=== PATIENT | female | born 1940 | race Caucasian/White ===

== ENCOUNTER → 2016-12-10 | Outpatient (CLI) | payer OTHER, MEDICARE ==
--- NOTE | 2016-12-10 13:19 | MR ---
MRI Cervical Spine (Without Contrast) December 10, 2016 Indication: Neck pain and headaches. Decreased range of motion. Technique: Sagittal T1, T2, and axial T2, 3D gradient echo MR sequences of the cervical spine without contrast. Findings: The cervical spine is normally aligned except for 3 mm of anterolisthesis of T1 on T2. Bone marrow signal is normal. No fracture, bone marrow replacing lesion, or paraspinal mass. Cerebellar t onsils are in normal position. Cervical spinal cord is normal caliber. No cord edema or myelomalacia. Synovial hypertrophy at the level of the dens results in minimal acquired narrowing at the foramen ma gnum. C2-C3: Disk desiccation. Widely patent central canal. Facet hypertrophy, slightly worse on the right, results in moderate right and minimal left neural foraminal narrowing. C3-C4: Disk desiccation and a mild broad-based osteophyte disk complex results in minimal central can al narrowing and mild to moderate bilateral neural foraminal stenosis. C4-C5: Disk desiccation and diffuse broad-based osteophyte disk complex results in mild central canal narrowing and mild bilateral neural foraminal stenosis. C5-C6: A diffuse broad-based osteophyte disk complex, worse off to the right results in mild central canal narrowing and mild to moderate bilateral neural foraminal stenosis. C6-C7: Disk desiccation and diffuse broad-based osteophyte disk complex results in mild central canal narrowing and mild bilateral neural foraminal narrowing. C7-T1: Disk desiccation. Central canal and neural foramina are widely patent. Anterolisthesis of T1 on T2 results in moderate bilateral neural foraminal stenosis. Central canal is widely patent. Impression: 1. No fracture or bone lesion. 2. Grade 1 spondylolisthesis of T1 on T2 due to facet hypertrophy results in moderate bilateral neura l foraminal narrowing. 3. Moderate multilevel degenerative disk disease extending from C3-C4 to C6-C7 resulting in mild cent ral canal narrowing and mild to moderate neural foraminal stenosis. No focal disk herniation at any l evel.
== END ==
LOC: FIMAGING 10:01
PROVIDERS: ATTEND Internal Medicine
DX: M43.12 Spondylolisthesis, cervical region (principal); M50.31 Other cervical disc degeneration, high cervical region; M48.02 Spinal stenosis, cervical region

== ENCOUNTER → 2016-12-15 | Outpatient (CLI) | payer OTHER, MEDICARE ==
--- NOTE | 2016-12-15 10:03 | DX ---
Right Shoulder, 3 views HISTORY: Follow-up shoulder replacement 12/12/2015, Z96.611 Comparison: June 25, 2016 Findings: The right humeral and glenoid implants remain in excellent anatomic alignment. There is no evidence for loosening or settling. The humeral head component remains normally aligned with the malorie oid. IMPRESSION: Excellent stable postoperative alignment.
--- NOTE | 2016-12-15 10:22 | DX ---
Cervical Spine, 6 upright views including lateral flexion and extension views HISTORY: Cervical pain without trauma COMPARISON: August 12, 2016 plain films Findings: In the neutral position alignment is stable, with degenerative narrowing of disc spaces bet ween C3 and C6, mild spondylolisthesis at C6-7 and C7-T1. In flexion there is severely limited range of motion without significant change in the spondylolistheses between C6 and T1. In extension there i s normal range of motion without significant change in the spondylolisthesis described above. A 6 mm spondylolisthesis at T1-T2 does not significantly change between flexion and extension, and is identi fied in retrospect on the prior study. On the AP view of the head is again tilted toward the patient' s right. There is chronic degenerative change of the left upper facet joints. Impression: No instability identified.
== END ==
LOC: BMCIMAGING 09:12
PROVIDERS: ATTEND Internal Medicine
DX: M50.31 Other cervical disc degeneration, high cervical region (principal); M43.12 Spondylolisthesis, cervical region; M43.14 Spondylolisthesis, thoracic region; Z96.611 Presence of right artificial shoulder joint

== ENCOUNTER → 2018-12-03 | Outpatient (CLI) | payer OTHER, MEDICARE | LOC: FIMAGING 09:09 | PROVIDERS: ATTEND Internal Medicine | DX: R51 Headache (principal); M53.82 Other specified dorsopathies, cervical region ==

== ENCOUNTER 2018-12-28 23:00 | Observation (INO) | payer OTHER, MEDICARE ==
--- NOTE | 2018-12-28 23:12 | EDPHY ---
H & P Time Seen by Provider: 12/28/18 23:12 HPI/ROS: HPI CHIEF COMPLAINT: Headache. Hypertension. HISTORY OF PRESENT ILLNESS: 78-year-old female, poor historian, presents to the emergency room by private vehicle the right-sided neck pain and a right- sided headache. Patient states she suffers from "Seizures in her head" patient states that she suffers from this chronically approximately 2 times a day where she gets this sharp electrical pain that radiates from her right neck up behind her right ear to her right side of her head. However this was worse tonight she reports that it started around 5:00 p.m. Tonight while she was making dinner. She went to bed around 7:00 p.m. And the symptoms got worse. Describes electrical sharp stabbing pain right neck behind the patient's right ear up into the right head in. Associated nausea with it but no vomiting. Describes is 10 at 10 rather severe. She distally reports some chest tightness that started at the same time. She denies any focal numbness or tingling denies focal weakness, denies shortness of breath or pleuritic pain. She has had this discomfort multiple times before but worse tonight. Patient noted to be hypertensive upon arrival. Does not take any blood pressure medications. Of note the patient states she does not have "any significant medical history does not take any daily medications." Past Medical History: Significant medical history for pulmonary embolism status post surgery, anemia, coronary artery disease, OA Past Surgical History: No recent surgery, bilateral shoulder replacements. Social History: Denies drugs alcohol tobacco. at bedside. Family History: Noncontributory ROS REVIEW OF SYSTEMS: Patient extremely poor historian. Review of systems limited due to this. Exam Constitutional triage nursing summary reviewed, vital signs reviewed, awake/ alert. Noted be hypertensive upon arrival 209/100. Eyes normal conjunctivae and sclera, EOMI, PERRLA. HENT neck exam no carotid bruit, normal inspection, atraumatic, moist mucus membranes, no epistaxis, neck supple/ no meningismus, no raccoon eyes. Respiratory clear to auscultation bilaterally, normal breath sounds, no respiratory distress, no wheezing. Cardiovascular rate normal, regular rhythm, no murmur, no edema, distal pulses normal. Gastrointestinal soft, non-tender, no rebound, no guarding, normal bowel sounds, no distension, no pulsatile mass. Genitourinary no CVA tenderness. Musculoskeletal no midline vertebral tenderness, full range of motion, no calf swelling, no tenderness of extremities, no meningismus, good pulses, neurovascularly intact. Skin pink, warm, & dry, no rash, skin atraumatic. Neurologic awake, alert and oriented x 3, AAOx3, moves all 4 extremities equally, motor intact, sensory intact, CN II-XII intact, normal cerebellar, normal vision, normal speech. Psychiatric normal mood/affect. Heme/Lymph/Immune no lymphadenopathy. Differential Diagnosis: Includes but is not limited to in a particular order migraine headache, tension headache, cervical radiculopathy, nerve root compression, vertebral artery dissection, aneurysm, intracranial bleed, CVA Medical Decision Making: Here in emergency room the patient noted be hypertensive upon arrival, complaining of right lateral posterior neck pain right headache. Similar previous headaches but worse tonight. Also complains of chest tightness. Plan for this patient IV established IV fluid bolus 1 mg IV Dilaudid for pain control 4 mg IV Zofran for nausea basic blood work, CT angiogram head and neck. CT head without contrast. Acutely treat her pain and see if her blood pressure improves. Obtain EKG and troponin. Chest x-ray. Re-evaluation: EKG interpretation by me on record in [employer] system. Impression time of EKG 2320, sinus rhythm rate of 69 without any signs of acute ischemia no ST elevation no ST depression. No T-wave abnormalities unremarkable nonischemic EKG. Chest x-ray negative for acute cardiopulmonary disease image interpreted by myself. Troponin 0.00 CT scan of the head without contrast and CT angiogram head and neck are pending at this time. CT scan head without contrast and CT angiogram head and neck faxed me by direct Radiology this is a negative unremarkable CT angiogram head and neck and CT head without contrast. 1:00 a.m.. 0355: Patient re-evaluated she is resting comfortably at this time. Her blood pressure has improved with pain control for her right-sided neck and headache. Her CT scans have been reviewed and are unremarkable for abnormality. She has a negative CT angiogram. As well as negative CT head without contrast The patient is EKG is nonischemic. Patient's troponin negative. Her neck pain and headache improved with IV pain control. Her blood pressure has improved as well. Plan for hospital admission for hypertension. Given her headache and how high her blood pressure is this could be hypertensive urgency. Plan for admission to PCU Patient agrees for admission Spoke with the hospitalist service Dr. López Agrees to admit. ED x-ray chest one view negative for acute cardiopulmonary disease. Image interpreted myself. Bilateral shoulder replacements. Source: Patient - Medical/Surgical History Hx Asthma: No Hx Chronic Respiratory Disease: No Hx Diabetes: No Hx Cardiac Disease: No Hx Renal Disease: No Hx Cirrhosis: No Hx Alcoholism: No Hx HIV/AIDS: No Hx Splenectomy or Spleen Trauma: No Other PMH: high cholesterol, OA - Social History Smoking Status: Never smoked Constitutional: Initial Vital Signs Temperature (C) 36.8 C 12/28/18 23:10 Heart Rate 74 12/28/18 23:10 Respiratory Rate 20 12/28/18 23:10 Blood Pressure 209/115 H 12/28/18 23:10 O2 Sat (%) 96 12/28/18 23:10 O2 Delivery Mode Nasal Cannula O2 (L/minute) 2 Allergies/Adverse Reactions: SEASONAL Allergy (Severe, Uncoded 12/28/18 23:04) GETS ALLERGY SHOTS, SNEEZY, Home Medications: Medication Instructions Recorded Acetaminophen [Tylenol ES 500 mg 500 mg PO BID 01/01/16 (*)] Naproxen Sodium [Aleve 220 MG (*)] 220 mg PO BID 12/28/18 Ascorbic Acid [Vitamin C 500 mg 500 mg PO DAILY 12/29/18 (*)] Docusate Sodium [Colace 100 MG (*)] 100 mg PO DAILY PRN 12/29/18 Ferrous Sulfate [Ferrous Sulf 325 325 mg PO DAILY 12/29/18 MG (*)] SUMAtriptan [Imitrex 25 MG (*)] 25 mg PO Q4H #30 tab 12/29/18 Medical Decision Making - Data Points Laboratory Results: Laboratory Results 12/28/18 23:20 12/28/18 23:20 Medications Given: Discontinued Medications Acetaminophen (Tylenol) 1,000 mg PO Q8H PRN PRN Reason: Pain Stop: 06/27/19 03:56 Last Admin: 12/29/18 18:20 Dose: 1,000 mg Hydromorphone HCl (Dilaudid) 1 mg IVP EDNOW ONE Stop: 12/28/18 23:24 Last Admin: 12/28/18 23:35 Dose: 1 mg Hydromorphone HCl (Dilaudid) 0.5 mg IVP EDNOW ONE Stop: 12/29/18 02:45 Last Admin: 12/29/18 02:54 Dose: 0.5 mg Sodium Chloride (Ns) 1,000 mls @ 0 mls/hr IV EDNOW ONE; Wide Open PRN Reason: Protocol Stop: 12/28/18 23:23 Last Admin: 12/28/18 23:34 Dose: 1,000 mls Ibuprofen (Motrin) 800 mg PO Q8HRS PRN PRN Reason: Headache Stop: 06/27/19 13:59 Last Admin: 12/29/18 09:43 Dose: 800 mg Ondansetron HCl (Zofran) 4 mg IVP EDNOW ONE Stop: 12/28/18 23:24 Last Admin: 12/28/18 23:35 Dose: 4 mg Sumatriptan Succinate (Imitrex) 25 mg PO ONCE ONE Stop: 12/29/18 11:30 Last Admin: 12/29/18 12:20 Dose: 25 mg Point of Care Test Results: Chemistry 12/28/18 23:28 POC Troponin I 0.00 ng/mL ng/mL (0.00-0.08) Departure - Departure Disposition: [facility] Acute Clinical Impression: Hypertensive urgency Headache Qualifiers: Headache type: unspecified Headache chronicity pattern: acute headache Intractability: not intractable Qualified Code(s): R51 - Headache Condition: Good
[2018-12-28] MEDS ORDERED: NS 1,000 ML IV ONE (23:22)
[2018-12-28] MEDS ORDERED: HYDROmorphONE/DILAUDID 2 MG/ML INJ IVP ONE (23:23)
[2018-12-28] MEDS ORDERED: ONDANSETRON 4 MG/2 ML VIAL IVP ONE (23:23)
[2018-12-28 23:35] LABS: PLATELET COUNT 392 10^3/uL (150-400)
[2018-12-28 23:45] LABS: INR 1.13 (0.83-1.16); PROTIME(PATIENT) 14.7 SEC (12.0-15.0)
[2018-12-28] MEDS ORDERED: IOHEXOL 350mgI/ML (OMNIPAQUE) 150 ML BTL IV ONE (23:49)
[2018-12-29] MEDS ORDERED: HYDROmorphONE/DILAUDID 2 MG/ML INJ IVP ONE (02:44)
[2018-12-29] MEDS ORDERED: ONDANSETRON DISINTEGRATING 4 MG TAB PO PRN (03:57)
[2018-12-29] MEDS ORDERED: ONDANSETRON 4 MG/2 ML VIAL IVP PRN (03:57)
[2018-12-29] MEDS ORDERED: ACETAMINOPHEN 325 MG TAB PO PRN (03:57)
--- NOTE | 2018-12-29 04:24 | PDGENHP ---
History and Physical - Chief Complaint Headache - History of Present Illness 78 yo F w/ hx of PE (now off AC) and KRISHAN presents with headache. The patient tells me she has been having headaches a few times per week for about a year. She describes a rapid onset pain that originates in her posterior neck and radiates to the parietal region. She had gone ten days without an episode until she developed a 10/10 pain tonight, which she describes as the worst pain of her life. She uses the term "seizure" to describe these pain events but understands they are likely not true seizures. She denies temporal pain or visual disturbances. She does have a sense that the headache is going to come before it happens. In the ED a CT of the head as well as CTA of head and neck were unremarkable. She has been told by her doctor that she needs an MRI, which she states was to be done soon. Of note, SBP was >200 on arrival to the ER. Her systolic pressure has improved to the 150s while in the ED without intervention. She takes no BP meds as an outpatient. Case discussed with ED physician Dr. Dacosta; records reviewed and summarized above. History Information - Allergies/Home Medication List Allergies/Adverse Reactions: SEASONAL Allergy (Severe, Uncoded 12/28/18 23:04) GETS ALLERGY SHOTS, SNEEZY, Home Medications: Acetaminophen [Tylenol ES 500 mg (*)] 500 mg PO QID 01/01/16 [Last Taken 18:00] Aleve 12/28/18 [Last Taken Unknown] I have personally reviewed and updated: family history, medical history - Past Medical History pulmonary embolism Additional medical history: Iron deficiency anemia - Surgical History Additional surgical history: Bilateral shoulder arthroplasties - Family History Additional family history: Negative for autoimmune disease - Social History Smoking Status: Never smoked Review of Systems Review of Systems: ROS: 10pt was reviewed & negative except for what was stated in HPI & below Physical Exam Physical Exam: Temp Pulse Resp BP Pulse Ox 36.8 C 72 17 155/80 H 99 12/28/18 23:10 12/29/18 01:38 12/29/18 01:38 12/29/18 01:38 12/29/18 01:38 Constitutional: appears nourished, uncomfortable Eyes: PERRL, EOMI Ears, Nose, Mouth, Throat: moist mucous membranes, no oral mucosal ulcers Cardiovascular: regular rate and rhythym Respiratory: no respiratory distress, clear to auscultation Gastrointestinal: normoactive bowel sounds, soft, non-tender abdomen Skin: warm, normal color Neurologic: AAOx3, sensation intact bilaterally, CN II-XII Intact, No weakness, No numbness, No facial droop Psychiatric: interacting appropriately, not anxious Lab Data & Imaging Review 12/28/18 23:20 12/28/18 23:20 WBC 10.74 10^3/uL (3.80-9.50) H 12/28/18 23:20 RBC 4.03 10^6/uL (4.18-5.33) L 12/28/18 23:20 Hgb 10.1 g/dL (12.6-16.3) L 12/28/18 23:20 Hct 32.7 % (38.0-47.0) L 12/28/18 23:20 MCV 81.1 fL (81.5-99.8) L 12/28/18 23:20 MCH 25.1 pg (27.9-34.1) L 12/28/18 23:20 MCHC 30.9 g/dL (32.4-36.7) L 12/28/18 23:20 RDW 19.4 % (11.5-15.2) H 12/28/18 23:20 Plt Count 392 10^3/uL (150-400) 12/28/18 23:20 MPV 8.5 fL (8.7-11.7) L 12/28/18 23:20 Neut % (Auto) 74.7 % (39.3-74.2) H 12/28/18 23:20 Lymph % (Auto) 18.9 % (15.0-45.0) 12/28/18 23:20 [place] % (Auto) 5.2 % (4.5-13.0) 12/28/18 23:20 Eos % (Auto) 0.5 % (0.6-7.6) L 12/28/18 23:20 Baso % (Auto) 0.2 % (0.3-1.7) L 12/28/18 23:20 Nucleat RBC Rel Count 0.0 % (0.0-0.2) 12/28/18 23:20 Absolute Neuts (auto) 8.03 10^3/uL (1.70-6.50) H 12/28/18 23:20 Absolute Lymphs (auto) 2.03 10^3/uL (1.00-3.00) 12/28/18 23:20 Absolute Monos (auto) 0.56 10^3/uL (0.30-0.80) 12/28/18 23:20 Absolute Eos (auto) 0.05 10^3/uL (0.03-0.40) 12/28/18 23:20 Absolute Basos (auto) 0.02 10^3/uL (0.02-0.10) 12/28/18 23:20 Absolute Nucleated RBC 0.00 10^3/uL (0-0.01) 12/28/18 23:20 Immature Gran % 0.5 % (0.0-1.1) 12/28/18 23:20 Immature Gran # 0.05 10^3/uL (0.00-0.10) 12/28/18 23:20 PT 14.7 SEC (12.0-15.0) 12/28/18 23:20 INR 1.13 (0.83-1.16) 12/28/18 23:20 APTT 32.3 SEC (23.0-38.0) 12/28/18 23:20 Sodium 133 mEq/L (135-145) L 12/28/18 23:20 Potassium 4.5 mEq/L (3.5-5.2) 12/28/18 23:20 Chloride 103 mEq/L (97-110) 12/28/18 23:20 Carbon Dioxide 21 mEq/l (22-31) L 12/28/18 23:20 Anion Gap 9 mEq/L (6-14) 12/28/18 23:20 BUN 41 mg/dL (7-23) H 12/28/18 23:20 Creatinine 0.9 mg/dL (0.6-1.0) 12/28/18 23:20 Estimated GFR > 60 12/28/18 23:20 Glucose 109 mg/dL (70-100) H 12/28/18 23:20 Calcium 9.2 mg/dL (8.5-10.4) 12/28/18 23:20 POC Troponin I 0.00 ng/mL (0.00-0.08) 12/28/18 23:28 NT-Pro-B Natriuret Pep 337 pg/mL (0-450) 12/28/18 23:20 Urine Color COLORLESS 12/29/18 00:35 Urine Appearance CLEAR 12/29/18 00:35 Urine pH 6.0 (5.0-7.5) 12/29/18 00:35 Ur Specific [place] 1.017 (1.002-1.030) 12/29/18 00:35 Urine Protein NEGATIVE (NEGATIVE) 12/29/18 00:35 Urine Ketones NEGATIVE (NEGATIVE) 12/29/18 00:35 Urine Blood 1+ (NEGATIVE) H 12/29/18 00:35 Urine Nitrate NEGATIVE (NEGATIVE) 12/29/18 00:35 Urine Bilirubin NEGATIVE (NEGATIVE) 12/29/18 00:35 Urine Urobilinogen NEGATIVE EU (0.2-1.0) 12/29/18 00:35 Ur Leukocyte Esterase 2+ (NEGATIVE) H 12/29/18 00:35 Urine RBC 1-3 /hpf (0-3) 12/29/18 00:35 Urine WBC 5-10 /hpf (0-3) H 12/29/18 00:35 Ur Epithelial Cells TRACE /lpf (NONE-1+) 12/29/18 00:35 Urine Glucose NEGATIVE (NEGATIVE) 12/29/18 00:35 Imaging Review: Prelim CTH, CTA Head/Neck: No acute findings Visualized and Interpreted EKG results: Yes EKG Interpretation: Positive for: normal sinsus rhythm Assessment & Plan Assessment: 78 yo F w/ hx of PE presents with headache and hypertension. Plan: 1. Headache - Unclear etiology; possibly an atypical migraine. Her usual headache pattern (ongoing several times per week for a year) involves an aura followed by rapid onset posterior neck pain with radiation to parietal region. On night of admission she had "worst headache of her life". CTH and CTA Head/ Neck in ED were unremarkable. She has a non-focal neurologic exam. BP was elevated on arrival, which could be contributing, but has improved significantly without intervention. - Will obtain MRI for further evaluation - Consider neurology consultation if not improving or concerning findings on MRI 2. Hypertension - SBP>200 on arrival; improved to SBP 150's without intervention. Possibly this is related to pain. She denies prior history of HTN. - Monitor BP - If persistently elevated, reasonable to start treatment as this may be contributing to headaches 3. Iron deficiency anemia - On oral iron replacement as an outpatient. Her H/H is near previous values. 4. Hx PE - Provoked by shoulder surgery in 2015, she is no longer on anticoagulation. 5. Hyponatremia - Mild, s/p 1 L IVF. Monitor BMP. Diet - Regular Code - Full Ppx - SCDs Dispo - Admit under observation status
[2018-12-29] MEDS: ACETAMINOPHEN 500 MG TAB PO PRN ×2 (05:05→18:20)
[2018-12-29] MEDS ORDERED: ENOXAPARIN 40 MG/0.4 ML SYR SC SCH (09:00)
[2018-12-29] MEDS ORDERED: DOCUSATE SODIUM 100 MG CAP PO PRN (09:01)
[2018-12-29] MEDS ORDERED: IBUPROFEN 800 MG TAB PO PRN (09:02)
[2018-12-29] MEDS ORDERED: SUMAtriptan 25 MG TAB PO ONE (11:29)
[2018-12-29] MEDS ORDERED: GADOBUTROL 10 ML VIAL IVP ONE (11:47)
--- NOTE | 2018-12-29 12:13 | ASMTCMCOM ---
CM Note CM Note Notes: Pts case discussed in tx rounds. Pt is a 78 y/o female admitted for hypertension urgency. OT has been ordered. Needs are TBD at this time. CM to follow. Plan: TBD Date Signed: 12/29/2018 12:13 PM Electronically Signed By:PEPE Valente
[2018-12-29 15:16] VITALS: BP 172/96
--- NOTE | 2018-12-29 17:33 | PDDCSUM ---
Discharge Summary Discharge Summary: Date of Admission: 12/28/2018 Date of Discharge: 12/29/2018 Studies: 1. CT head 2. CTA head/neck 3. MRI brain Discharge Diagnoses: 1. Migrainous headache 2. Hypertension 3. Iron deficiency anemia (chronic) 4. H/o PE (provoked in 2016, now off anticoagulation) 5. Hypovolemic hyponatremia, mild Brief Hospital Course: 78 yo F w/ hx of provoked PE presented with headache and hypertension. On night of admission she had "worst headache of her life." She has been having ongoing headaches several times per week for a year. Denies any aura. Rapid onset posterior neck pain with radiation to right parietal region. Stabbing sensation. Last about an hour. She had a non-focal neurologic exam. CTA head/ neck and brain MRI were unremarkable (except for incidental venous angioma in left basal ganglia - discussed with radiology and minimal chance this is culprit of symptoms). She was started on imitrex with relief. Of note, her BP was markedly elevated on arrival (200/110) and improved to SBP 140-150s without intervention. Suspect this was related to pain. This should be monitored as an outpatient as could be contributing to headaches. Medications: Please refer to EMR for complete list. Sent prescription for imitrex PRN to her pharmacy. Follow Up Plan: 1. Ongoing migraine management with her PCP. Consider neurology referral 2. BP monitoring Physical Exam: Vitals reviewed. Alert and oriented, no focal neuro deficits, rrr without m/r/g, lungs clera, abdomen soft and nt, no edema, no rashes.
--- NOTE | 2018-12-30 06:41 | CPEKG ---
Test Reason : OPEN Blood Pressure : / mmHG Vent. Rate : 069 BPM Atrial Rate : 069 BPM P-R Int : 135 ms QRS Dur : 083 ms QT Int : 388 ms P-R-T Axes : 055 024 028 degrees QTc Int : 416 ms Sinus rhythm Confirmed by Brent Srivastava ([id number]) on 12/30/2018 6:40:42 AM Referred By: Brent Srivastava Confirmed By:Brent Srivastava
[2018-12-30] MEDS ORDERED: FERROUS SULFATE 325 MG TAB PO SCH (09:00)
== END 2018-12-29 18:29 | disposition home or self-care (01) ==
LOC: F2W 12-29 04:45
PROVIDERS: ADMIT Student in an Organized Health Care Education/Training Program; ATTEND Internal Medicine
DX: G43.909 Migraine, unspecified, not intractable, without status migrainosus (principal); I10 Essential (primary) hypertension; D50.9 Iron deficiency anemia, unspecified; E87.1 Hypo-osmolality and hyponatremia; E86.1 Hypovolemia; R93.0 Abnormal findings on diagnostic imaging of skull and head, not elsewhere classified; I25.10 Atherosclerotic heart disease of native coronary artery without angina pectoris; E78.5 Hyperlipidemia, unspecified; M19.90 Unspecified osteoarthritis, unspecified site; Z86.718 Personal history of other venous thrombosis and embolism; Z96.612 Presence of left artificial shoulder joint; Z96.611 Presence of right artificial shoulder joint
CPT/HCPCS: 70450; 70496; 70498; 70553; 71045; 93005; 96374; 96375; 96376; 97165; 99285; A9585; G0378; J1170; J2405; Q9967; 84484-ER

== ENCOUNTER 2019-01-03 01:07 | Inpatient (IN) | payer OTHER, MEDICARE ==
--- NOTE | 2019-01-03 01:09 | EDPHY ---
H & P Time Seen by Provider: 01/03/19 01:09 HPI/ROS: HPI CHIEF COMPLAINT: Chest pain, hypertension, nausea, vomiting, diarrhea, headache HISTORY OF PRESENT ILLNESS: 78-year-old female very familiar to myself, presents to the emergency room she was just recently admitted for hypertension urgency, migraine headache, , presents back to the emergency room [facility] with multitude of complaints. She reports since 9:00 p.m. She developed some chest discomfort across her chest tightness. Additionally reports nausea 1 episode of vomiting and diarrhea multiple times around 6:00 p.m. [facility]. It is now 115 in the morning. She also states she has a headache. Similar previous headaches. It is noted that I just admitted her to the hospital for headache and hypertensive urgency. She was discharged on the of last month. She is due to follow up with primary care doctor today. She arrives to the emergency room by private vehicle her main complaint is chest tightness across her chest associated nausea vomiting. Of note when she arrived to the emergency room her blood pressure is 200/100. This very similar presentation to when she was here last time. Her discharge blood pressure was in the 140s to 150 systolic. She has not been started on any blood pressure medication. She has not take any blood pressure medication. Past Medical History: Significant medical history for migraine headaches, hypertension, PE, coronary disease, osteoarthritis Past Surgical History: No recent surgery Social History: Lives locally denies drugs alcohol tobacco. Family History: Noncontributory ROS REVIEW OF SYSTEMS: 10 Systems were reviewed and negative with the exception of the elements mentioned in the history of present illness. Exam Constitutional elderly, nontoxic triage nursing summary reviewed, vital signs reviewed, awake/alert. Vital signs noted be hypertensive 200/100. Eyes normal conjunctivae and sclera, EOMI, PERRLA. HENT normal inspection, atraumatic, moist mucus membranes, no epistaxis, neck supple/ no meningismus, no raccoon eyes. Respiratory clear to auscultation bilaterally, normal breath sounds, no respiratory distress, no wheezing. Cardiovascular rate normal, regular rhythm, no murmur, no edema, distal pulses normal. Gastrointestinal soft, non-tender, no rebound, no guarding, normal bowel sounds, no distension, no pulsatile mass. Genitourinary no CVA tenderness. Musculoskeletal no midline vertebral tenderness, full range of motion, no calf swelling, no tenderness of extremities, no meningismus, good pulses, neurovascularly intact. Skin pink, warm, & dry, no rash, skin atraumatic. Neurologic awake, alert and oriented x 3, AAOx3, moves all 4 extremities equally, motor intact, sensory intact, CN II-XII intact, normal cerebellar, normal vision, normal speech. Psychiatric normal mood/affect. Heme/Lymph/Immune no lymphadenopathy. Differential Diagnosis: Differential diagnosis includes but is not limited to: ACS, atypical chest pain, pneumothorax, pneumonia, pulmonary embolism, aortic dissection, congestive heart failure, tumor, musculoskeletal pain, esophageal pain, GERD, peptic ulcer disease, pancreatitis hypertensive urgency, hypertensive emergency, migraine headache hypertension from pain Medical Decision Making: Plan for this patient IV establishment full monitor worker obtain EKG, troponin, IV Dilaudid 1 mg for headache and chest pain. EKG , troponin, chest x-ray closely monitor appearing re-evaluate blood pressure. Re-evaluation: EKG interpretation by me on record in [employer] system. Impression time of EKG 1:18 a.m., sinus rhythm rate of 79 without any signs of acute ischemia no ST elevation. ED x-ray chest one view bilateral shoulder replacements. Clear lung wilkinson bilaterally. Chest x-ray compared to chest x-ray 5 days ago stable. 2:23 a.m. patient resting comfortably. Feels better after IV Dilaudid 1 mg, blood pressure still very high 173/92. Heart rate 75, pulse ox 100% nasal cannula 2 L Plan for hospital admission for observation for hypertension. I believe her chest discomfort and headache is again caused from hypertensive urgency. Will ask the hospitalist service to admit Initial blood pressure 200/100 here. Improved with pain control 170s over 90s. She is chest pain-free at this time 2:23 a.m.. Source: Patient - Medical/Surgical History Hx Asthma: No Hx Chronic Respiratory Disease: No Hx Diabetes: No Hx Cardiac Disease: No Hx Renal Disease: No Hx Cirrhosis: No Hx Alcoholism: No Hx HIV/AIDS: No Hx Splenectomy or Spleen Trauma: No Other PMH: high cholesterol, OA - Social History Smoking Status: Never smoked Constitutional: Initial Vital Signs Heart Rate 88 01/03/19 01:12 Respiratory Rate 18 01/03/19 01:12 O2 Sat (%) 99 01/03/19 01:12 O2 Delivery Mode Room Air O2 (L/minute) 2 Allergies/Adverse Reactions: SEASONAL Allergy (Severe, Uncoded 01/03/19 01:18) GETS ALLERGY SHOTS, SNEEZY, Home Medications: Medication Instructions Recorded Acetaminophen [Tylenol ES 500 mg 500 mg PO BID 01/01/16 (*)] Naproxen Sodium [Aleve 220 MG (*)] 220 mg PO BID 12/28/18 Ascorbic Acid [Vitamin C 500 mg 500 mg PO DAILY 12/29/18 (*)] Docusate Sodium [Colace 100 MG (*)] 100 mg PO DAILY PRN 12/29/18 Ferrous Sulfate [Ferrous Sulf 325 325 mg PO DAILY 12/29/18 MG (*)] Acet/Caffeine/Buta Fioricet 1 each PO Q6H PRN #12 tab 01/05/19 [Fioricet (*)] Gabapentin [Neurontin 300 MG (*)] 300 mg PO DAILY #30 cap 01/05/19 Medical Decision Making - Data Points Laboratory Results: Laboratory Results 01/03/19 01:25 01/04/19 05:04 Medications Given: Discontinued Medications Acetaminophen (Tylenol) 650 mg PO Q4HRS PRN PRN Reason: Pain, Mild/Fever, Can Take PO Stop: 07/02/19 02:44 Last Admin: 01/03/19 19:59 Dose: 650 mg Acetaminophen/Butalbital/Caffeine (Fioricet) 1 each PO Q6H PRN PRN Reason: Headache Stop: 01/14/19 11:30 Last Admin: 01/05/19 08:49 Dose: 1 each Gabapentin (Neurontin) 300 mg PO DAILY CASTRO Stop: 07/03/19 16:29 Last Admin: 01/05/19 08:40 Dose: 300 mg Hydromorphone HCl (Dilaudid) 1 mg IVP EDNOW ONE Stop: 01/03/19 01:18 Last Admin: 01/03/19 01:28 Dose: 1 mg Sodium Chloride (Ns) 1,000 mls @ 0 mls/hr IV EDNOW ONE; Wide Open PRN Reason: Protocol Stop: 01/03/19 01:17 Last Admin: 01/03/19 01:30 Dose: 1,000 mls Ketorolac Tromethamine (Toradol) 15 mg IVP Q6HRS PRN PRN Reason: Pain, Moderate Stop: 01/08/19 04:18 Last Admin: 01/05/19 08:37 Dose: 15 mg Lisinopril (Zestril) 10 mg PO EDNOW ONE Stop: 01/03/19 02:55 Last Admin: 01/03/19 03:20 Dose: 10 mg Lisinopril (Zestril) 10 mg PO DAILY CASTRO Stop: 07/03/19 08:59 Last Admin: 01/05/19 08:44 Dose: 10 mg Lorazepam (Ativan) 0.5 - 1 mg PO Q8HRS PRN PRN Reason: Anxiety, Able to Take PO Stop: 07/02/19 02:44 Last Admin: 01/05/19 08:38 Dose: 0.25 mg Ondansetron HCl (Zofran) 4 mg IVP EDNOW ONE Stop: 01/03/19 01:18 Last Admin: 01/03/19 01:30 Dose: 4 mg Ondansetron HCl (Zofran) 4 mg IVP Q4HRS PRN PRN Reason: Nausea/Vomiting, Can't Take PO Stop: 07/02/19 02:44 Last Admin: 01/04/19 14:10 Dose: 4 mg Point of Care Test Results: Chemistry 01/03/19 01:25 POC Troponin I 0.00 ng/mL ng/mL (0.00-0.08) Departure - Departure Disposition: [facility] Inpatient Acute Clinical Impression: Hypertensive urgency Condition: Fair
[2019-01-03] MEDS ORDERED: NS 1,000 ML IV ONE (01:16)
[2019-01-03] MEDS ORDERED: ONDANSETRON 4 MG/2 ML VIAL IVP ONE (01:17)
[2019-01-03] MEDS ORDERED: HYDROmorphONE/DILAUDID 2 MG/ML INJ IVP ONE (01:17)
[2019-01-03 01:36] LABS: PLATELET COUNT 407 10^3/uL (150-400)
[2019-01-03 01:45] LABS: INR 1.17 (0.83-1.16); PROTIME(PATIENT) 15.1 SEC (12.0-15.0)
[2019-01-03] MEDS ORDERED: ONDANSETRON 4 MG/2 ML VIAL IVP PRN (02:45)
[2019-01-03] MEDS ORDERED: ONDANSETRON DISINTEGRATING 4 MG TAB PO PRN (02:45)
[2019-01-03] MEDS ORDERED: LISINOPRIL 10 MG TAB PO ONE (02:54)
[2019-01-03] MEDS ORDERED: traMADol 50 MG TAB PO PRN (04:20)
--- NOTE | 2019-01-03 04:31 | PDGENHP ---
History and Physical - Chief Complaint Chest pain, headache - History of Present Illness Source-patient provides history appears reliable. EMR was reviewed and case discussed with ED provider. HPI-is a very pleasant 78-year-old female with past medical history significant for migraine headaches, chronic back pain presents emergency department with complaints of chest pain and headache. Patient was just recently discharged on 12/29/18 for similar presentation with complaints of severe headache, chest pain. Patient underwent CT CTA of the head and MRI of the brain without any acute findings. During the course of her hospital stay patient's blood pressure did improve significantly without any intervention. She was discharged without any addition of antihypertensive medications as there was some suspicion that pain was causing patient's elevated blood pressures. Patient denies any fevers or chills. No orthopnea, PND, lower extremity edema. She again developed chest discomfort subsequent headache. No acute changes in vision. No focal deficits. Patient's initial blood pressures in the emergency department 200/100s. History Information - Allergies/Home Medication List Allergies/Adverse Reactions: SEASONAL Allergy (Severe, Uncoded 01/03/19 01:18) GETS ALLERGY SHOTS, SNEEZY, Home Medications: Acetaminophen [Tylenol ES 500 mg (*)] 500 mg PO BID 01/01/16 [Last Taken 21:00] Naproxen Sodium [Aleve 220 MG (*)] 220 mg PO BID 12/28/18 [Last Taken 12/28/18 21:00] Ascorbic Acid [Vitamin C 500 mg (*)] 500 mg PO DAILY 12/29/18 [Last Taken ] Docusate Sodium [Colace 100 MG (*)] 100 mg PO DAILY PRN 12/29/18 [Last Taken Unknown] Ferrous Sulfate [Ferrous Sulf 325 MG (*)] 325 mg PO DAILY 12/29/18 [Last Taken 12/28/18] I have personally reviewed and updated: family history, medical history, social history, surgical history - Past Medical History migraines, pulmonary embolism (No longer on anticoagulation.) Additional medical history: Iron deficiency anemia. Chronic low back pain. - Surgical History Additional surgical history: Bilateral shoulder arthroplasties. Lumbar steroid injections. - Family History Additional family history: Negative for autoimmune disease. Mother-HTN - Social History Smoking Status: Never smoked Alcohol Use: None Drug Use: None Additional social history: Patient is lives with her in [place]. Within the past year patient reports that she has had significant decline in her ability to complete ADLs due to her ongoing issues with lower back pain. Cor status-full. Review of Systems Review of Systems: ROS: 10pt was reviewed & negative except for what was stated in HPI & below Physical Exam Physical Exam: Blood pressure upon arrival to the ED 200/100. Selected Entries 01/03/19 01:32 Blood Pressure Automatic Method Heart Rate 74 O2 Sat (%) 95 Blood Pressure 173/92 H Mean Arterial 119 H Pressure (MAP) O2 Delivery Room Air Mode Temp Pulse Resp BP Pulse Ox 36.8 C 71 18 136/81 H 98 01/03/19 04:00 01/03/19 04:00 01/03/19 03:21 01/03/19 04:00 01/03/19 04:00 O2 (L/minute) 1 Constitutional: no apparent distress, chronically ill appearing, other (No acute distress. Pleasant elderly slightly frail-appearing female is lying quietly in rney.) Eyes: PERRL (Glasses), anicteric sclera, EOMI, No scleral injection Ears, Nose, Mouth, Throat: dry mucous membranes, other (No nasal discharge.), No poor dentition Cardiovascular: regular rate and rhythym (Slightly distant heart sounds.), no murmur, rub, or gallop, pulses symmetric bilaterally, No edema Peripheral Pulses: 1+: dorsalis-pedis (R), dorsalis-pedis (L) Respiratory: no respiratory distress, no rales or rhonchi, clear to auscultation , No expiratory wheeze, No respiratory distress, No rhonchi Gastrointestinal: normoactive bowel sounds, soft, non-tender abdomen, no palpable masses, No tenderness, No guarding, No rebound, No distension Genitourinary: no bladder tenderness, No bey in urethra Skin: warm, normal color, no rashes or abrasions Musculoskeletal: pain with ROM (Lobe), generalized weakness (Generalized weakness and deconditioning. Patient is able to sit up independently with some low back pain pain and discomfort.) Neurologic: AAOx3, sensation intact bilaterally, other (Grossly nonfocal exam.) , No facial droop Psychiatric: interacting appropriately, not encephalopathic, thought process linear, anxious, No depressed, No flat affect, No poor memory Lab Data & Imaging Review 01/03/19 01:25 01/03/19 01:25 WBC 10.06 10^3/uL (3.80-9.50) H 01/03/19 01:25 RBC 4.31 10^6/uL (4.18-5.33) 01/03/19 01:25 Hgb 11.2 g/dL (12.6-16.3) L 01/03/19 01:25 Hct 35.4 % (38.0-47.0) L 01/03/19 01:25 MCV 82.1 fL (81.5-99.8) 01/03/19 01:25 MCH 26.0 pg (27.9-34.1) L 01/03/19 01:25 MCHC 31.6 g/dL (32.4-36.7) L 01/03/19 01:25 RDW 19.6 % (11.5-15.2) H 01/03/19 01:25 Plt Count 407 10^3/uL (150-400) H 01/03/19 01:25 MPV 8.5 fL (8.7-11.7) L 01/03/19 01:25 Neut % (Auto) 72.6 % (39.3-74.2) 01/03/19 01:25 Lymph % (Auto) 18.1 % (15.0-45.0) 01/03/19 01:25 [place] % (Auto) 7.6 % (4.5-13.0) 01/03/19 01:25 Eos % (Auto) 0.6 % (0.6-7.6) 01/03/19 01:25 Baso % (Auto) 0.2 % (0.3-1.7) L 01/03/19 01:25 Nucleat RBC Rel Count 0.0 % (0.0-0.2) 01/03/19 01:25 Absolute Neuts (auto) 7.31 10^3/uL (1.70-6.50) H 01/03/19 01:25 Absolute Lymphs (auto) 1.82 10^3/uL (1.00-3.00) 01/03/19 01:25 Absolute Monos (auto) 0.76 10^3/uL (0.30-0.80) 01/03/19 01:25 Absolute Eos (auto) 0.06 10^3/uL (0.03-0.40) 01/03/19 01:25 Absolute Basos (auto) 0.02 10^3/uL (0.02-0.10) 01/03/19 01:25 Absolute Nucleated RBC 0.00 10^3/uL (0-0.01) 01/03/19 01:25 Immature Gran % 0.9 % (0.0-1.1) 01/03/19 01:25 Immature Gran # 0.09 10^3/uL (0.00-0.10) 01/03/19 01:25 PT 15.1 SEC (12.0-15.0) H 01/03/19 01:25 INR 1.17 (0.83-1.16) H 01/03/19 01:25 APTT 35.1 SEC (23.0-38.0) 01/03/19 01:25 Sodium 138 mEq/L (135-145) 01/03/19 01:25 Potassium 4.5 mEq/L (3.5-5.2) 01/03/19 01:25 Chloride 106 mEq/L (97-110) 01/03/19 01:25 Carbon Dioxide 23 mEq/l (22-31) 01/03/19 01:25 Anion Gap 9 mEq/L (6-14) 01/03/19 01:25 BUN 35 mg/dL (7-23) H 01/03/19 01:25 Creatinine 0.9 mg/dL (0.6-1.0) 01/03/19 01:25 Estimated GFR > 60 01/03/19 01:25 Glucose 121 mg/dL (70-100) H 01/03/19 01:25 Calcium 9.6 mg/dL (8.5-10.4) 01/03/19 01:25 POC Troponin I 0.00 ng/mL (0.00-0.08) 01/03/19 01:25 NT-Pro-B Natriuret Pep 138 pg/mL (0-450) 01/03/19 01:25 Imaging Review: Chest x-ray high is reviewed myself report is still pending. Compared to chest x-ray from 12/29/18. Peribronchiolar wall thickening without any acute consolidations with prominent mediastinal widening similar to previous x-ray. Patient does appear slightly rotated. Chest X-Ray results: no infiltrate Visualized and Interpreted imaging results: Yes Assessment & Plan Assessment: 78 -year-old female with past medical history significant for Jono headaches , chronic low back pain and history PE presents emergency department with complaints of chest pain and headache. Hypertensive urgency (Acute) - blood pressure at triage in the ED 200/100. Patient given dose dilaudid and IVF with improvement in BPs down to SBP 130s. Patient chest pain and headache symptoms improved. Patient was discharged for similar presentation. Patient had rapid resolution of BPs and medication management was deferred for continued monitoring. Patient will be started on lisinopril given the variability of her blood pressures any extremes. Additionally patient is also currently taking Imitrex which could contribute to variable blood pressures. Will hold off on any continue dosing at this time. Chest pain - patient with some chest pressure which has improved with correction of blood pressures. Patient was started on lisinopril as noted above. Headache - improved with blood pressure control and pain medications as above. Chronic low back pain - supportive care with K-pad and Tylenol. Anemia, iron deficiency - resume iron replacement. FEN - saline lock IV. Replace electrolytes p.r.n. Cardiac diet. PPX-SCDs. Holding anticoagulation anticipating short hospital stay. Cor status-full This is an-patient admitted to observation status on [facility] floor with remote telemetry to monitor for stabilization blood pressures.
[2019-01-03] MEDS: ACETAMINOPHEN 325 MG TAB PO PRN ×3 (10:01→19:59)
--- NOTE | 2019-01-03 15:28 | ASMTCMCOM ---
CM Note CM Note Notes: Plan of care reviewed in multidisciplinary rounds. 78 year old female admitted via ED for c/o chest tightness and nausea. Recently discharged after episode of similar complaints. Lives independently with her , no needs anticipated at this time. CM to follow. Plan: Like to discharge to home when medically stable for discharge. Date Signed: 01/03/2019 03:28 PM Electronically Signed By:Unique Fournier RN
--- NOTE | 2019-01-03 16:23 | HOSPPROG ---
Hospitalist Progress Note Assessment/Plan: 78 yo F w LEON, paroxysmal hth, cp cp: in setting of marked htn had this pain on presentation last night w non ischemic ekg (interp by me) stress in AM cannot walk 2/2 knee arthritis LEON: not clearly migraines will have neurology see in am htn: started on lisinopril Subjective: cxr unchanged from prior (interp by me). no further LEON Objective: Vital Signs Temp Pulse Resp BP Pulse Ox 36.8 C 66 16 87/54 L 93 01/03/19 15:59 01/03/19 15:59 01/03/19 15:59 01/03/19 15:59 01/03/19 15:59 01/02/19 01/03/19 01/04/19 05:59 05:59 05:59 Intake Total 1000 Balance 1000 PT 15.1 SEC (12.0-15.0) H 01/03/19 01:25 INR 1.17 (0.83-1.16) H 01/03/19 01:25 - Physical Exam Constitutional: no apparent distress, appears nourished Eyes: PERRL, anicteric sclera Ears, Nose, Mouth, Throat: moist mucous membranes, hearing normal Cardiovascular: regular rate and rhythym, no murmur, rub, or gallop, No systolic murmur Respiratory: no respiratory distress, no rales or rhonchi Gastrointestinal: normoactive bowel sounds, soft, non-tender abdomen Genitourinary: no bladder fullness, No bey in urethra Skin: warm, no induration Musculoskeletal: full muscle strength Neurologic: AAOx3 ICD10 Worksheet Patient Problems: Problems Problem Status Onset Hypertensive urgency Acute Headache Acute Pulmonary embolism Acute
[2019-01-04] MEDS ORDERED: REGADENOSON 0.4 MG/5 ML SYR IVP ONE (09:37)
[2019-01-04] MEDS: KETOROLAC 15 MG/1 ML SDV IVP PRN ×2 (10:33→19:39)
[2019-01-04] MEDS: LISINOPRIL 10 MG TAB PO SCH (10:38)
--- NOTE | 2019-01-04 10:41 | CPR ---
[f rep st] NONINVASIVE CARDIAC PROCEDURE REPORT DATE OF PROCEDURE: 01/04/2019 PROCEDURE: Lexiscan nuclear stress test. ADMIT DIAGNOSES: 1. Chest pain. 2. Family history of coronary artery disease. Resting EKG shows a sinus bradycardia with occasional PVCs at a rate of 55. Resting blood pressure 1 54/86, oxygen saturation 97%. STRESS PORTION: Lexiscan nuclear stress test. Lexiscan was injected rapidly followed by saline flush. Cardiolite was then injected followed by mercy ine flush. Her blood pressure dropped to 106/55, heart rate 118, at peak, oxygen saturation 95%. Anupam horton did feel a headache after the injection. There were no EKG changes. RECOVERY: She did recover spontaneously. Blood pressure 120/66, heart rate 94, oxygen saturation 97 %. Her headache did subside with caffeine. At this time she currently is stable for nuclear imaging. /[id number]/MODL
[2019-01-04] MEDS: ACET/CAFFEINE/BUTA FIORICET 1 EACH TAB PO PRN ×2 (11:49→18:49)
--- NOTE | 2019-01-04 16:24 | NEUROPROG ---
Assessment: [id number] - Neurology Consult: - CC: Dr. Savana Kendall consulted neurology for headache. Results placed in EMR for her review. - HPI: Pt presented to [facility] ER on 01/03/19 with chest pain and headaches. She was reported to have head long-standing headaches since 2017 that occurred 8/month and could be sudden onset sharp pain in her head. She was seen at [facility] in November 2018 for the headache. Evaluation included unremarkable head/neck CTA and brain MRI wwo. On admission on 01/03/19 pt noted to have slightly elevated WBC of 10, elevated BUN of 35, and elevated blood pressure to 173/92. I initially saw the patient on 01/04/19. Neurologic exam normal. Defer chest pain eval to hospitalist. 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 However other possible causes are elevated blood pressure. Recommend addressing elevated blood pressure and beginning pt on gabapentin 300 mg qhs for headache prophylaxis and having pt f/u in neurology clinic in 1-6 weeks to assess response. - PMHx: MHA, pulm emboli, Fe def anemia, chronic low back pain - SHx: no tobacco FHx: HTN - ROS: Pt denied acute fever, total vision loss, active severe chest pain, respiratory failure, total body severe rash, total bowel/bladder incontinence, psychosis, active seizures, or active bleeding - O: VS reviewed General: Alert Eyes: Fundoscopic exam not able to visualize optic disks CV: Heart RRR, no murmur, no carotid bruit Lungs: Clear to auscultation bilaterally, no rhonchi or rales Neuro: - Mental: . Oriented x person/place/date . concentration appears normal . speech fluency/comprehension normal . memory appears normal . fund of knowledge appear intact - Cranial Nerves: . II: PERRL, VFFTC . III/IV/: EOMI, no nystagmus, normal smooth pursuits, no Ptosis . V: facial sensation intact to LT . VII: face symmetric to eye closure and smile . VIII: hearing intact to conversation . IX/X: uvula raises symmetrically . XI: SCM 5/5 B/L strength . XII: tongue protrudes midline w/nl strength - Motor: . Tone: normal tone in all 4 extremity . Strength: no pronator drift, strength 5/5 throughout (B/L delt, bic, tri, hand precipitate washer, hf/he, df/pf) - Reflexes: B/L bic/BR/patella 2/4 - Sensory: all 4 extremity intact to light touch - Coord: [id number] wnl, ZAN wnl, [id number] wnl - Gait: deferred - Labs: 01/03/19- BUN 35H - Rads: 12/29/18- Brain MRI wwo: Underlying atrophy and white matter disease compatible with age. Incidental venous angioma left basal ganglia. No acute intracranial process identified (I personally visualized the images on 01/03/19) - 12/29/18- Head/neck CTA: normal - Assessment: 1. Chronic headaches - 2. Chest pain: defer eval to hospitalist 3. Chronic low back pain - Plan: - elevated blood pressure can cause headaches so recommend addressing - recommend beginning gabapentin 300 mg qhs for headache prophylaxis - F/U in neurology clinic 1-6 weeks - No further neuro w/u needed, neurology will sign off Objective: Vital Signs Temp Pulse Resp BP Pulse Ox 37.1 C 70 16 119/73 94 01/04/19 15:13 01/04/19 15:13 01/04/19 15:13 01/04/19 15:13 01/04/19 15:13 Laboratory Results 01/04/19 05:04 01/03/19 01/04/19 01/05/19 05:59 05:59 05:59 Intake Total 1000 400 Balance 1000 400 PT 15.1 SEC (12.0-15.0) H 01/03/19 01:25 INR 1.17 (0.83-1.16) H 01/03/19 01:25 Allergies/Adverse Reactions: SEASONAL Allergy (Severe, Uncoded 01/03/19 01:18) GETS ALLERGY SHOTS, SNEEZY,
--- NOTE | 2019-01-04 16:31 | HOSPPROG ---
Hospitalist Progress Note Assessment/Plan: 78 yo F w LEON, paroxysmal hth, cp cp: in setting of marked htn neg stress LEON: not clearly migraines neurology thinks it is neuralgia; neurontin started htn: reactive dc meds dispo: change to inpt Subjective: case d/w dr girard. neg stress Objective: Vital Signs Temp Pulse Resp BP Pulse Ox 37.1 C 70 16 119/73 94 01/04/19 15:13 01/04/19 15:13 01/04/19 15:13 01/04/19 15:13 01/04/19 15:13 Laboratory Results 01/04/19 05:04 01/03/19 01/04/19 01/05/19 05:59 05:59 05:59 Intake Total 1000 400 Balance 1000 400 PT 15.1 SEC (12.0-15.0) H 01/03/19 01:25 INR 1.17 (0.83-1.16) H 01/03/19 01:25 - Physical Exam Constitutional: no apparent distress, appears nourished Eyes: PERRL, anicteric sclera Ears, Nose, Mouth, Throat: moist mucous membranes, hearing normal Cardiovascular: regular rate and rhythym, no murmur, rub, or gallop Respiratory: no respiratory distress, no rales or rhonchi Gastrointestinal: normoactive bowel sounds, soft, non-tender abdomen Genitourinary: No bey in urethra Skin: warm, normal color Musculoskeletal: full muscle strength, no muscle tenderness Neurologic: AAOx3 ICD10 Worksheet Patient Problems: Problems Problem Status Onset Hypertensive urgency Acute Headache Acute Pulmonary embolism Acute
[2019-01-04] MEDS: GABAPENTIN 300 MG CAP PO SCH (16:43)
--- NOTE | 2019-01-04 17:27 | PDMN ---
Medical Necessity Medical necessity: [facility] [id number] Hypertension: 78 yo w/ CP and H/A. Eval reveals hypertensive urgency 200/100 and admitted to OBS for workup and tx. Cardio and neuro consults ordered. Pt remains hypertensive today w/ BPs 150s-180s/80s- 120s and is not back to baseline requiring additional MN for ongoing TELE monitoring and BP management. Hx migrains, PE, anemia, chronic low back pain. Change to IP status 01/04/19@1631 per MD order.
[2019-01-04] MEDS: LORazepam 0.5 MG TAB PO PRN (19:39)
[2019-01-05] MEDS: KETOROLAC 15 MG/1 ML SDV IVP PRN (08:37)
[2019-01-05] MEDS: LORazepam 0.5 MG TAB PO PRN (08:38)
[2019-01-05] MEDS: GABAPENTIN 300 MG CAP PO SCH (08:40)
[2019-01-05] MEDS: LISINOPRIL 10 MG TAB PO SCH (08:44)
[2019-01-05 08:45] VITALS: BP 109/77
[2019-01-05] MEDS: ACET/CAFFEINE/BUTA FIORICET 1 EACH TAB PO PRN (08:49)
--- NOTE | 2019-01-05 12:45 | HOSPPROG ---
Hospitalist Progress Note Assessment/Plan: 78 yo F w LEON, paroxysmal hth, cp cp: in setting of marked htn neg stress LEON: not clearly migraines neurology thinks it is neuralgia; neurontin started htn: reactive dc meds dispo: home today > 30 minutes Subjective: mild LEON this AM. responded to fioricet Objective: Vital Signs Temp Pulse Resp BP Pulse Ox 36.3 C 92 16 109/77 92 01/05/19 08:46 01/05/19 08:46 01/05/19 08:46 01/05/19 08:46 01/05/19 08:46 01/04/19 01/05/19 01/06/19 05:59 05:59 05:59 Intake Total 900 Balance 900 PT 15.1 SEC (12.0-15.0) H 01/03/19 01:25 INR 1.17 (0.83-1.16) H 01/03/19 01:25 - Physical Exam Constitutional: no apparent distress, appears nourished Eyes: PERRL, anicteric sclera Ears, Nose, Mouth, Throat: moist mucous membranes, hearing normal Cardiovascular: regular rate and rhythym, no murmur, rub, or gallop Respiratory: no respiratory distress, no rales or rhonchi Gastrointestinal: normoactive bowel sounds, soft, non-tender abdomen Genitourinary: no bladder fullness, No bey in urethra Skin: warm Musculoskeletal: full muscle strength, no muscle tenderness Neurologic: AAOx3, sensation intact bilaterally ICD10 Worksheet Patient Problems: Problems Problem Status Onset Hypertensive urgency Acute Headache Acute Pulmonary embolism Acute
--- NOTE | 2019-01-09 08:57 | CPEKG ---
Test Reason : OPEN Blood Pressure : / mmHG Vent. Rate : 079 BPM Atrial Rate : 079 BPM P-R Int : 138 ms QRS Dur : 086 ms QT Int : 373 ms P-R-T Axes : 057 033 027 degrees QTc Int : 428 ms Sinus rhythm Atrial premature complex Confirmed by Benjie Reno ([id number]) on 01/09/2019 8:57:13 AM Referred By: Savana Kendall Confirmed By:Benjie Reno
== END 2019-01-05 14:10 | disposition home or self-care (01) | DRG 305 ==
LOC: F1N 03:58 → OBSVTOIN 01-04 16:31
PROVIDERS: ADMIT Family Medicine; ATTEND Internal Medicine
DX: I16.0 Hypertensive urgency (principal); R07.9 Chest pain, unspecified; R51 Headache; Z86.711 Personal history of pulmonary embolism; D50.9 Iron deficiency anemia, unspecified
CPT/HCPCS: 84484-ER; 96374; 97165-GO; 97535-GO; A9500; G0378; J1170; J1885; J2405; J2785

== ENCOUNTER → 2019-03-10 | Outpatient (CLI) | payer OTHER, MEDICARE | LOC: FIMAGING 14:29 | PROVIDERS: ATTEND Orthopaedic Surgery | DX: M16.11 Unilateral primary osteoarthritis, right hip (principal); K57.90 Diverticulosis of intestine, part unspecified, without perforation or abscess without bleeding ==

== ENCOUNTER 2019-03-16 09:16 | Inpatient (IN) | payer OTHER, MEDICARE ==
[~2019-03-16 09:16] MED LIST: POVIDONE-IODINE 20 ML in SODIUM CL IRRIG SOLUTION 500 ML IRR ONE; ROPIVACAINE 0.2% 80 MG, EPINEPHrine 0.2 MG, KETOROLAC TROMETHAMINE 30 MG in SYRINGE 0 ML IU ONE; TRANEXAMIC ACID 1,000 MG in NS 100 ML IV ONE
[2019-03-16] MEDS ORDERED: BUPIVACAINE/EPI 0.5% 30 ML SDV ONE (09:19)
[2019-03-16] MEDS ORDERED: LR 1,000 ML IV ONE (09:30)
[2019-03-16] MEDS ORDERED: ceFAZolin 2 GM/DEXTROSE 100 ML IV ONE (09:30)
[2019-03-16] MEDS ORDERED: DEXAMETHASONE 4 MG/ML VIAL IVP ONE (09:30)
[2019-03-16] MEDS ORDERED: FAMOTIDINE 20 MG TAB PO ONE (09:30)
[2019-03-16] MEDS ORDERED: ACETAMINOPHEN 325 MG TAB PO ONE (09:30)
--- NOTE | 2019-03-16 10:51 | PDHPUP ---
History & Physical Update H&P update statement: This history and physical update is based on an assessment of the patient which was completed after admission or registration (within 24 hours), but prior to the surgery/procedure. H&P update: H&P reviewed & patient examined, no change in patient's condition since H&P completed
[2019-03-16] MEDS ORDERED: MIDAZOLAM 2 MG/2 ML VIAL IVP ONE (10:57)
[2019-03-16] MEDS ORDERED: MIDAZOLAM 2 MG/2 ML VIAL ONE (10:59)
--- NOTE | 2019-03-16 11:00 | PDANEPAE ---
ANE History of Present Illness DJd s/f JORGE ANE Past Medical History - Cardiovascular History Hx Hypertension: Yes Hx Arrhythmias: No Hx Chest Pain: No Hx Coronary Artery / Peripheral Vascular Disease: No Hx CHF / Valvular Disease: No Hx Palpitations: No Cardiovascular History Comment: PE 2016 POST SHOULDER SURG WAS ON PRADAXA FOR TX. Recent admit x2 for HTN crisis - Pulmonary History Hx COPD: No Hx Asthma/Reactive Airway Disease: No Hx Recent Upper Respiratory Infection: No Hx Oxygen in Use at Home: No Hx Sleep Apnea: No Sleep Apnea Screening Result - Last Documented: Negative Pulmonary History Comment: SOME SOB W/STAIRS. HX of PE - Neurologic History Hx Cerebrovascular Accident: No Hx Seizures: No Hx Dementia: No Neurologic History Comment: HEADACHES - GABAPENTIN - Endocrine History Hx Diabetes: No - Renal History Hx Renal Disorders: Yes Renal History Comment: URGENCY INCONT - Liver History Hx Hepatic Disorders: No - Neurological & Psychiatric Hx Hx Neurological and Psychiatric Disorders: No - Cancer History Hx Cancer: No - Congenital Disorder History Hx Congenital Disorders: No - GI History Hx Gastrointestinal Disorders: No - Other Health History Other Health History: NEG - Chronic Pain History Chronic Pain: No - Surgical History Prior Surgeries: R KNEE MENISCUS. L SHOULDER REPLACEMENT. HYSTERECTOMY. COLONSOCOPY. R SHOULDER REPLACEMENT. PAVITHRA CATARACTS ANE Review of Systems Review of Systems: - Exercise capacity METS (RN): 4 METS ANE Patient History - Allergies Allergies/Adverse Reactions: SEASONAL Allergy (Severe, Uncoded 01/03/19 01:18) GETS ALLERGY SHOTS, SNEEZY, - Home Medications Home medications: home medication list seen and reviewed Home Medications: Acetaminophen [Tylenol ES 500 mg (*)] 500 mg PO TID@07,,16 01/01/16 [Last Taken 03/15/19 23:59] Ascorbic Acid [Vitamin C 500 mg (*)] 1,000 mg PO DAILY 12/29/18 [Last Taken ] Docusate Sodium [Colace 100 MG (*)] 100 mg PO HS 12/29/18 [Last Taken 03/08/19] Ferrous Sulfate [Ferrous Sulf 325 MG (*)] 325 mg PO DAILY@12/29/18 [Last Taken 03/15/19] Gabapentin [Neurontin 100 MG (*)] 100 mg PO DAILY@03/10/19 [Last Taken 23:59] - NPO status NPO Status: no food or drink >8 hours NPO Since - Liquids (Date): 03/15/19 NPO Since - Liquids (Time): 22:00 NPO Since - Solids (Date): 03/15/19 NPO Since - Solids (Time): 18:00 - Smoking Hx Smoking Status: Never smoked - Alcohol Use Alcohol Use: None - Family Anes Hx Family Anes Hx: none Family Hx Anesthesia Complications: NEG ANE Labs/Vital Signs - Labs - CBC WBC: reviewed and okay - Vital Signs Blood Pressure: 206/104 Heart Rate: 73 Respiratory Rate: 14 O2 Sat (%): 100 Height: 147.32 cm ANE Physical Exam - Airway Neck exam: FROM Mallampati Score: Class 2 Mouth exam: normal dental/mouth exam - Pulmonary Pulmonary: no respiratory distress - Cardiovascular Cardiovascular: regular rate and rhythym - ASA Status ASA Status: III ANE Anesthesia Plan Anesthesia Plan: spinal (HTN today similar to last 2 admission. Likely underlying HTN now with anxiety overlay. Okay for OR and then hopitalists post op)
[2019-03-16] MEDS ORDERED: PROPOFOL/EMULSION 500 MG/50 ML BOTTLE IV ONE (11:18)
[2019-03-16] MEDS ORDERED: fentaNYL 100 MCG/2 ML INJ ONE (11:18)
[2019-03-16] MEDS ORDERED: PHENYLEPHRINE HCL 100 MCG/ML SYR ONE (12:01)
[2019-03-16] MEDS ORDERED: ONDANSETRON 4 MG/2 ML VIAL ONE (12:17)
[2019-03-16] MEDS ORDERED: DEXAMETHASONE 4 MG/ML VIAL ONE (12:17)
[2019-03-16] MEDS ORDERED: PROPOFOL 200 MG/20 ML VIAL ONE (12:23)
[2019-03-16] MEDS ORDERED: METOCLOPRAMIDE 10 MG/2 ML VIAL IVP PRN (13:07)
[2019-03-16] MEDS ORDERED: BISACODYL 10 MG SUPP PR PRN (13:07)
[2019-03-16] MEDS ORDERED: PROMETHAZINE HCL 25 MG/ML INJ IVP PRN (13:07)
[2019-03-16] MEDS ORDERED: ONDANSETRON DISINTEGRATING 4 MG TAB PO PRN (13:07)
[2019-03-16] MEDS ORDERED: MAGNESIUM HYDROXIDE 30 ML UDCUP PO PRN (13:07)
[2019-03-16] MEDS ORDERED: DIPHENOXYLATE/ATROPINE LOMOTIL 1 TAB PO PRN (13:07)
[2019-03-16] MEDS ORDERED: POLYETHYLENE GLYCOL 3350 17 GM PKT PO PRN (13:07)
[2019-03-16] MEDS ORDERED: CYCLOBENZAPRINE 10 MG TAB PO PRN (13:07)
[2019-03-16] MEDS ORDERED: diphenhydrAMINE 25 MG CAP PO PRN (13:07)
[2019-03-16] MEDS ORDERED: PROMETHAZINE HCL 25 MG SUPPR PR PRN (13:07)
[2019-03-16] MEDS ORDERED: oxyCODONE IR 5 MG TAB PO PRN (13:07)
[2019-03-16] MEDS ORDERED: TEMAZEPAM 15 MG CAP PO PRN (13:07)
[2019-03-16] MEDS ORDERED: LACTULOSE 20 GM/30 ML UDCUP PO PRN (13:07)
[2019-03-16] MEDS ORDERED: ONDANSETRON 4 MG/2 ML VIAL IVP PRN (13:07)
--- NOTE | 2019-03-16 13:07 | POSTOPPROG ---
Post Op Note Date of Operation: 03/16/19 Surgeon: London Watson [employer] Installer: JONES Hair Anesthesiologist: MD Stephen Anesthesia: IV Sedation, Spinal Pre-op Diagnosis: R hip OA Post-op Diagnosis: same Procedure: R ant JORGE with SOFIYA Inf/Abcess present in the surg proc area at time of surgery?: No EBL: 100-500 (300) Drains: Hemovac
[2019-03-16] MEDS ORDERED: LR 1,000 ML IV SCH (13:30)
--- NOTE | 2019-03-16 13:39 | POSTANESTH ---
Post Anesthetic Evaluation Cardiovascular Status: Similar to Pre-Op Cond, Tx Hyper/Hypo-tension (HTN better post op) Respiratory Status: Normal, Stable, Tx Decrease in SpO2 Level of Consciousness/Mental Status: Can Participate in Eval Pain Control: Adequate, Prn Tx Ordered Nausea/Vomiting Control: Adequate, Prn Tx Ordered Complications Possibly Related to Anesthesia: None Noted
--- NOTE | 2019-03-16 15:01 | ASMTCMCOM ---
CM Note CM Note Notes: Patient is POD #[address] Watson. She is normally independent and lives with her . Dr Watson put in a pre-op referral for homecare to [facility], so if homecare is the recommendation, they are the agency. Case Management will follow. Date Signed: 03/16/2019 03:00 PM Electronically Signed By:Adrienne Lester RN
--- NOTE | 2019-03-16 15:16 | PDMN ---
Medical Necessity Medical necessity: [facility] IP only surgery; cpt 93006 R JORGE
--- NOTE | 2019-03-16 15:47 | SOAPPROG ---
SOAP Progress Note Assessment/Plan: Assessment: s/p right JORGE, anterior approach, Jc assist - procedure earlier this morning Plan: Begin discharge planning - patient wants to go home and would like home health. Her will be at home as well Continue VTE ppx - lovenox 40 mg once daily, ISMAEL, SCDs; history of PE PT - anterior hip precautions Continue pain medication - tolerating oral medication Consult hospital medicine for hypertension monitoring - history of hypertensive urgency Remove Hemovac in morning 03/16/19 15:43 Subjective: Patient states she is feeling pretty good at this time, right hip pain is minimal/tolerable. She is planning on going home once she is discharged from the hospital. States her lives with her, but she feels that she will need additional help and would like home health. She denies shortness of breath , chest pain, headache, fever, chills, nausea, vomiting. Objective: Vital Signs Temp Pulse Resp BP Pulse Ox 36.7 C 68 17 157/109 H 100 03/16/19 15:05 03/16/19 15:05 03/16/19 15:05 03/16/19 15:05 03/16/19 15:05 03/15/19 03/16/19 03/17/19 05:59 05:59 05:59 Intake Total 850 Output Total 975 Balance -125 Patient resting comfortably in bed, no acute distress. RLE: Surgical wound dressings are clean, dry and intact. Hemovac is in place. Right lower leg compartments are soft and nontender. She can actively DF and PF right foot and right great toe against resistance. Grossly NVI distally. ICD10 Worksheet Patient Problems: Problems Problem Status Onset Osteoarthritis of right hip Acute Headache Acute Hypertensive urgency Acute Pulmonary embolism Acute
--- NOTE | 2019-03-16 17:35 | PDCONSULT ---
Photo Journalist Note: Claudia White is a very pleasant 79-year-old female with no significant past medical history who was admitted for a right total hip arthroplasty which she underwent today. Internal medicine has been consulted for evaluation and management of her hypertension. The patient follows with Dr. Elizondo and has been told that she does have some elevated blood pressure and has been considered for medical management of her hypertension although nothing has been started yet. On this admission through chart review her blood pressures have been documented as high as 208 systolic. The patient has kept a journal of her blood pressures at home and thinks that she has systolic blood pressures as high as 180 documented in her journal. She has no symptoms that coincide with high blood pressures. Currently she is comfortable and denies any other complaints. Past medical history Likely undiagnosed hypertension Osteoarthritis Iron deficiency Surgical history Meniscal repair Total hip arthroplasty Rotator cuff Prolapse repair Social history No alcohol tobacco or drugs Family history Essential hypertension Allergies No known drug allergies Medications As listed in the medication reconciliation Review of systems Ten point review of systems is negative except as listed in the HPI Examination Vitals 136/93, pulse 84, respirations 17, saturating 96% on 1 room nasal cannula , temperature 36.5 degrees General well-nourished female in no acute distress HEENT-PERRLA atraumatic normocephalic, mucous membranes are moist pink and acyanotic Lungs clear to auscultation bilaterally Cardiovascular regular rhythm rate no murmurs rubs gallops Abdomen soft nontender nondistended in all 4 quadrants no organomegaly Extremities no clubbing cyanosis edema or calf pain Skin no lesions or rashes or ecchymosis Neuro cranial nerves 2-12 grossly intact no focal neurologic deficits Psych mood and affect appropriate Assessment plan 79-year-old female admitted for total hip arthroplasty noted to be hypertensive Right total hip arthroplasty-. Postop day 0 status post right JORGE. Management per Ortho, PT OT pain control DVT prophylaxis Hypertension- current blood pressure is 136/93, but has had systolic as high as 208. It does sound as though she may have some under ED did essential hypertension noted in the outpatient setting as well. Will start with p.r.n. Hydralazine 10 mg IV q.6 for systolic blood pressures over 170. If blood pressure is persistently elevated over 150 systolic will likely start a low dose of amlodipine. -avoid nsaids as they contribute to hypertension -hydralazine p.r.n. 10 mg IV q.6 The Chart and imaging have all been reviewed as the patient is new to me. PPX- per ortho Fluids- PO Dispo- inpatient for JORGE Thank you for this consult, medicine will continue follow.
[2019-03-16] MEDS ORDERED: hydrALAZINE 20 MG/ML VIAL IVP PRN (17:53)
[2019-03-16] MEDS: ACETAMINOPHEN 325 MG TAB PO SCH (18:24)
[2019-03-16] MEDS: ceFAZolin 2 GM/DEXTROSE 100 ML IV SCH (18:25)
[2019-03-16] MEDS ORDERED: GABAPENTIN 300 MG CAP PO SCH (19:00)
[2019-03-16] MEDS: FAMOTIDINE 20 MG TAB PO SCH (20:20)
[2019-03-16] MEDS ORDERED: DOCUSATE SODIUM 100 MG CAP PO SCH (21:00)
[2019-03-17] MEDS: ACETAMINOPHEN 325 MG TAB PO SCH ×2 (01:01→06:28)
[2019-03-17] MEDS: ceFAZolin 2 GM/DEXTROSE 100 ML IV SCH (03:47)
[2019-03-17] MEDS ORDERED: GABAPENTIN 100 MG CAP PO SCH ×2 (07:00→19:00)
[2019-03-17] MEDS ORDERED: FERROUS SULFATE 325 MG TAB PO SCH (07:00)
[2019-03-17 07:34] VITALS: BP 141/83
--- NOTE | 2019-03-17 07:47 | SOAPPROG ---
SOAP Progress Note Assessment/Plan: Assessment: Patient is doing well POD 1 s/p right JORGE, anterior approach, Jc assist Hypertension - followed by hospital medicine Plan: Pain management: pain is well controlled on oral pain meds, Percocet prescription given to patient VTE ppx: recommend Lovenox 40 mg SC once daily for 3 weeks, cont ISMAEL and SCDs Start outpatient PT within the next 1-2 weeks. Anterior JORGE precautions Anemia: level is expected initially postop. Asymptomatic. Continue to monitor D/C planning: Patient has done better than anticipated and would like to be discharged to home today. Patient must be released from PT before discharge to home. She will have home health arranged. Her will also be at home Follow up with PCP regarding hypertension 03/17/19 08:02 03/17/19 08:03 Subjective: Patient states she is feeling really good and would like to go home today. She is still interested in having home health arranged. Patient reports her right hip pain is minimal. She has been able to void spontaneously. She denies shortness of breath, chest pain, fever, chills, headache, nausea, vomiting. Regarding hypertension, hospitalist saw the patient yesterday. Order for Hydralazine 10 mg IV prn every 6 hours for SBP > 170 and if SBP persistently > 150 then a low dose of amlodipine was placed. They recommended she avoid NSAIDS. Objective: Vital Signs Temp Pulse Resp BP Pulse Ox 36.7 C 67 15 141/83 H 95 03/17/19 07:33 03/17/19 07:33 03/17/19 07:33 03/17/19 07:33 03/17/19 07:33 Laboratory Results 03/17/19 04:29 03/16/19 03/17/19 03/18/19 05:59 05:59 05:59 Intake Total 2055 Output Total 2200 Balance -145 Patient resting comfortably in bed, no acute distress. Patient is about to eat breakfast. RLE: Surgical wound dressings are clean, dry and intact. No signs of infection. Lower leg compartments are soft and nontender. She can actively DF and PF her right foot and great toe against resistance. Grossly NVI distally. ICD10 Worksheet Patient Problems: Problems Problem Status Onset Osteoarthritis of right hip Acute Headache Acute Hypertensive urgency Acute Pulmonary embolism Acute
[2019-03-17] MEDS: FAMOTIDINE 20 MG TAB PO SCH (08:02)
--- NOTE | 2019-03-17 08:12 | PDDCSUM ---
Discharge Summary Discharge Summary: ADMISSION DIAGNOSIS: Right hip severe degenerative arthritis DISCHARGE DIAGNOSIS: Right hip severe degenerative arthritis OPERATION PERFORMED: March 16, 2019, right total hip arthroplasty, anterior approach, Jc assist POSTOPERATIVE COMPLICATIONS: None CONDITION ON DISCHARGE: Improved DESCRIPTION OF HOSPITAL COURSE: The patient was admitted to the hospital on the morning of surgery and underwent a right total hip arthroplasty, anterior approach, Jc assist. Postoperatively, patient was treated with multimodal DVT prophylaxis, including lovenox 40 mg SC once daily, ISMAEL ally, SCDs. Patient was seen by PT and made good progress with ambulation and stairs. On the first post- operative day the patients H&H was 10.9/33.5. Patient was able to void spontaneously. At the time of discharge, patient was afebrile, wound was clean and dry. Patient is walking with a walker. DISPOSITION: The patient is discharged home with home health. She is to begin outpatient PT within the next 2 weeks before she sees Dr. Watson. Patient may progress to full weightbearing on the right lower extremity as tolerated. She will continue with Lovenox injection 40 mg SC once daily until 3 weeks post- operatively. Patient received prescription for Percocet for pain. The patient will be seen by Dr. Watson's office for her 2 week post-operative appointment. If there are any problems, patient is to call Dr. Farmer office.
[2019-03-17] MEDS ORDERED: ASCORBIC ACID 500 MG TAB PO SCH (09:00)
[2019-03-17] MEDS ORDERED: ENOXAPARIN 40 MG/0.4 ML SYR SC SCH (09:00)
--- NOTE | 2019-03-17 09:35 | PDIAF ---
- Diagnosis Diagnosis: Right hip osteoarthritis Code Status: Full Code - Medication Management Discharge Medications: electronically signed and located in the Home Medication List. - Orders Services needed: Home Care, Physical Therapy Home Care Face to Face: I certify that this patient was under my care and that I had the required [id number] encounter meeting the encounter requirements on the discharge day. My findings support the fact that the patient is homebound as defined in Home Care Face to Face Continued: CMS Chapter 7 Medicare Benefits Manual 30.1.1 , The condition of the patient is such that there exists a normal inability to leave home and consequently, leaving home would require a considerable and taxing effort. Isolation Type: None Diet Recommendation: no restrictions on diet Diet Texture: Regular Texture Diet Additional Instructions: WBAT Percocet given to patient see handout - Follow Up Care Current Providers and Referrals: London Watson MD [Medical Doctor] - follow up in 2 weeks Nallely Steele MD [Primary Care Provider] -
--- NOTE | 2019-03-17 10:02 | ASMTLACE ---
XIAOE Length of stay for Answers: 1 day current admission Acuity / Level of Answers: Yes Care: Did the patient have an inpatient admission? # of Emergency department Answers: 1-2 visits in the last 6 months Score: 5 Date Signed: 03/17/2019 10:01 AM Electronically Signed By:Gertrudis Dc RN
--- NOTE | 2019-03-17 10:24 | ASDISCHSUM ---
Discharge Information Plan Status:Home with Home Health Medically Cleared to Leave:03/17/2019 Discharge Date:03/17/2019 CM D/C Disposition:Home, Routine, Self-Care ADT D/C Disposition:Home Health Service Projected Discharge Date:03/17/2019 12:00 AM Transportation at D/C:Family Discharge Delay Reason: Follow-Up Date:03/17/2019 12:00 AM Discharge Slot:1 - 8:01 am - 12:00 noon Final Diagnosis:s/p Right Total Hip Arthoplasty Placement Information Patient Contact Information Contact Name:GEOVANNI Relationship: Address:[address] [place] [address] Work Phone: [facility]:[place] Alternate Phone: [facility]/Zip Code:[place] [address] Email: Financial Information Financial Class:Medicare Primary Plan Desc:MEDICARE INPATIENT Primary Plan Number:[id number] Secondary Plan Desc:[employer]/MDR SUPPLEMENT Secondary Plan Number:[id number] Assessment Information [facility] CM Progress Note CM Note CM Note Notes: Patient is POD #[address] Watson. She is normally independent and lives with her . Dr Watson put in a pre-op referral for homecare to [facility], so if homecare is the recommendation, they are the agency. Case Management will follow. Date Signed: 03/16/2019 03:00 PM Electronically Signed By:Adrienne Lester RN LACE LACE Length of stay for Answers: 1 day current admission Acuity / Level of Answers: Yes Care: Did the patient have an inpatient admission? # of Emergency department Answers: 1-2 visits in the last 6 months Score: 5 Date Signed: 03/17/2019 10:01 AM Electronically Signed By:Gertrudis Dc, RN Intervention Information
--- NOTE | 2019-03-17 10:57 | ASMTDCNOTE ---
Case Management Discharge Discharge Order Complete? Answers: Yes Patient to Obtain Answers: via Family Medications Transportation Arranged Answers: Family/Friends Faxed Final Orders Answers: Yes Notes: [facility] to [facility] Agency/Facility Transfer Answers: Yes Report Printed & Faxed to Receiving Agency Family Notified Answers: Yes Discharge Comments Notes: CM met with patient prior to discharge, her son and daughter in law were in the room and will support patient with recommendations and transport her home. IM explained, delivered, patient signed for receipt. Confirmed [facility] to follow up with patient for home care, patient states understanding. CM available to follow if any additional CM/Discharge needs arise. Date Signed: 03/17/2019 10:56 AM Electronically Signed By:Aisha Marin
[2019-03-17] MEDS ORDERED: OXYCODONE/APAP 5/325 TAB PO PRN (11:12)
--- NOTE | 2019-03-21 13:32 | GOP ---
[f rep st] OPERATIVE REPORT DATE OF OPERATION: 03/16/2019 SURGEON: London Watson MD TECHNICIAN'S HELPER: Mahad Hair, CSFA, LSA [employer] Worker was required for the procedure due to the complexity of the case, patient's condition for p ositioning, prepping, draping, retraction, and closure. ANESTHESIA: Spinal and IV sedation. PREOPERATIVE DIAGNOSIS: Right hip osteoarthritis. POSTOPERATIVE DIAGNOSIS: Right hip osteoarthritis. PROCEDURE PERFORMED: Right hip anterior approach hip replacement with MAKOplasty robotic guidance, f luoroscopic supervision, greater than 1 hour. FINDINGS: SPECIMENS: Femoral head x1. ESTIMATED BLOOD LOSS: 300 cc. INDICATIONS: Patient has severe hip osteoarthritis that failed to improve with conservative measures significantly affecting activities of daily living, including walking. Patient elected to proceed w ith anterior approach hip replacement using MAKOplasty robotic guidance after extensive discussion of all possible approaches, as well as risks, benefits, pros, cons, expected recovery, and prognosis. The patient verbalized understanding of the risks and benefits of the procedure and signed informed c onsent prior to the procedure. DESCRIPTION OF PROCEDURE: Patient was seen in the holding area. Operative consent and extremity wer e signed, and the patient was taken to the Operating Room. After a smooth induction of spinal anesth esia and sedation, she was placed in supine position on the Operating Room table with arch table exte nsion, and the hip and contralateral iliac crest were prepped and draped in the usual sterile fashion . Operative site was confirmed by signature, time-out performed. Allergies reviewed. Antibiotics a nd TXA were administered. Three pins were placed in the contralateral iliac crest, and the pelvic array was fixed. It was well visualized by the robot. Desired incision for the anterior approach of the hip was infiltrated with 0.25% Marcaine with epinephrine. Incision was made with a 10 blade, carried through subcutaneous ti ssue to identify the TFL fascia. This was incised in line with the incision. The TFL was retracted laterally. Lateral femoral circumflex vessels were coagulated with Aquamantys. The deep TFL fascia was incised, and the vastus lateralis was clearly exposed. Pre-capsular fat was excised. A T-shaped capsulotomy was performed. The capsule was preserved for later closure. The femoral neck cut was then performed based on pre-templated calculations and imaging. The femoral head was excised with a corkscrew. The acetabulum was exposed in standard fashion. The labrum and pulvinar soft tissue were excised sha rply. The pelvic checkpoint was placed in the AIIS. Acetabular registration was performed using the robot. Reaming was then performed using the robot to the desired size. Cup was impacted into place . Again, with robotic guidance system, good fixation was achieved. The cup was irrigated and dried, and the liner was impacted into place achieving good locking within the cup. The femur was exposed in standard fashion. The femur was broached to the desired size. Trial neck a nd head were attached, and the hip was relocated. The position of all components was confirmed fluor oscopically. The foot was externally rotated 90 degrees and extended to the floor. Stability was co nfirmed. The hip was then dislocated, and the femoral trial components were removed, and the stem wa s impacted into place. The trunnion was cleaned and dried, and the head was impacted down onto the t runnion. The wound was copiously irrigated, including the cup, with pulse lavage, and the hip was on ce again relocated. Component placement was confirmed with fluoroscopy. All checkpoints were remove d. The pelvic array was also removed. The wound was copiously irrigated with sterile solution. Dil tlingit & haida Betadine solution was then irrigated into the wound and allowed to soak for 3 minutes before bein g irrigated out. Joint cocktail solution was injected in the soft tissue. Capsule and indirect head of the rectus femoris were repaired with #1 Vicryl. The drain was placed exiting distally and later ally from deep to TFL. The wound was then closed in layers with 0 Quill in the TFL fascia, deep subc utaneous fat, and 3-0 Versa-Franko in the dermis. The wound was dressed with sterile dressings, patient safely awakened and taken to Recovery Room in stable condition. All critical portions of procedure performed by myself, Dr. Watson. This operative note was created by me, and I was immediately available for emergency cross-coverage at all times. DRAINS: Hemovac x1. COMPLICATIONS: None. IMPLANTS: Includes [place] Trident 2 titanium cluster hole acetabular shell size 48 mm with a 0-degr ee polyethylene liner, [place] Accolade 2 size 3 stem with a 132 degree neck angle and a 36 mm +2.5 m m head. /[id number]/MODL
== END 2019-03-17 11:46 | disposition home health service (06) | DRG 470 ==
LOC: F1N 09:16 → F3N 13:33
PROVIDERS: ADMIT Orthopaedic Surgery; ATTEND Orthopaedic Surgery
PROC: 0SR904Z Replacement of Right Hip Joint with Ceramic on Polyethylene Synthetic Substitute, Open Approach (ICD-10-PCS; principal; 2019-03-16 10:30)
PROC: 8E0Y0CZ Robotic Assisted Procedure of Lower Extremity, Open Approach (ICD-10-PCS; principal; 2019-03-16 10:30)
DX: M16.11 Unilateral primary osteoarthritis, right hip (principal); I10 Essential (primary) hypertension
CPT/HCPCS: 97116-GP; 97161-GP; 97165-GO; 97535-GO; J0171; J0690; J1100; J1650; J1885; J2250; J2370; J2405; J2704; J2795; J3010

== ENCOUNTER 2019-03-20 11:40 | Emergency (ER) | payer OTHER, MEDICARE ==
[2019-03-20] MEDS ORDERED: ACETAMINOPHEN 500 MG TAB ONE (12:07)
[2019-03-20] MEDS ORDERED: NS 1,000 ML IV ONE (12:09)
[2019-03-20] MEDS ORDERED: ACETAMINOPHEN 500 MG TAB PO ONE (12:09)
[2019-03-20 12:22] LABS: PLATELET COUNT 240 10^3/uL (150-400)
--- NOTE | 2019-03-20 12:55 | EDPHY ---
H & P Stated Complaint: r hip surgery 03/16 continued pain/sedated weakness post narcotics Time Seen by Provider: 03/20/19 12:54 HPI/ROS: CHIEF COMPLAINT: Postoperative fever, increased pain with ambulation, weakness HISTORY OF PRESENT ILLNESS: The patient is status post right hip replacement on of this past week. She had been doing well up until yesterday when she developed increasing weakness, difficulty walking and a postoperative fever. The patient reports the development of a slight cough over the past day. She denies any symptoms of urinary frequency or dysuria. The patient denies any discharge from her surgical site incision. The patient denies additional acute complaints. REVIEW OF SYSTEMS: A comprehensive 10 point review of systems is otherwise negative aside from elements mentioned in the history of present illness. Source: Patient Exam Limitations: No limitations - Personal History Current Tetanus Diphtheria and Acellular Pertussis (TDAP): Yes - Medical/Surgical History Hx Asthma: No Hx Chronic Respiratory Disease: No Hx Diabetes: No Hx Cardiac Disease: No Hx Renal Disease: No Hx Cirrhosis: No Hx Alcoholism: No Hx HIV/AIDS: No Hx Splenectomy or Spleen Trauma: No Other PMH: high cholesterol, OA hip surgery - Social History Smoking Status: Never smoked - Physical Exam Exam: General Appearance: Elderly female, no acute distress Eyes: Pupils equal and round no pallor or injection ENT, Mouth: Mucous membranes moist Respiratory: Crackles bilateral lung bases Cardiovascular: Regular rate and rhythm Gastrointestinal: Abdomen is soft and nontender, no masses, bowel sounds normal Neurological: 5/5 strength noted all 4 extremities Skin: Surgical drip incision clean dry and intact, minimal surrounding erythema Musculoskeletal: Neck is supple nontender Extremities: Painful passive range of motion noted at the right hip Psychiatric: Patient is oriented X 3, there is no agitation Constitutional: Initial Vital Signs Temperature (C) 39.4 C H 03/20/19 11:47 Heart Rate 94 03/20/19 11:47 Respiratory Rate 18 03/20/19 11:47 Blood Pressure 154/101 H 03/20/19 11:47 O2 Sat (%) 93 03/20/19 11:47 O2 Delivery Mode Room Air O2 (L/minute) 2 Allergies/Adverse Reactions: SEASONAL Allergy (Severe, Uncoded 03/20/19 11:45) GETS ALLERGY SHOTS, SNEEZY, Home Medications: Medication Instructions Recorded Acetaminophen [Tylenol ES 500 mg 500 mg PO TID@07,11,16 01/01/16 (*)] Ascorbic Acid [Vitamin C 500 mg 1,000 mg PO DAILY 12/29/18 (*)] Docusate Sodium [Colace 100 MG (*)] 100 mg PO HS 12/29/18 Ferrous Sulfate [Ferrous Sulf 325 325 mg PO DAILY@12/29/18 MG (*)] Gabapentin [Neurontin 100 MG (*)] 100 mg PO DAILY@03/10/19 Gabapentin [Neurontin 100 MG (*)] 300 mg PO DAILY@03/16/19 Enoxaparin [Lovenox 40 MG (*)] 40 mg SC DAILY syr 03/17/19 celeCOXIB [Celebrex (*)] 200 mg PO DAILY #30 cap 03/17/19 oxyCODONE/APAP 5/325 [Percocet 1 - 2 tab PO Q4HRS PRN #30 tab 03/17/19 5/325 (*)] Medical Decision Making - Diagnostics Imaging Results: Imaging Impressions Chest X-Ray 03/20/19 12:14 Impression: 1. Mild dependent interstitial edema suspected at the lung bases. Consider mild fluid overload. Pelvis X-Ray 03/20/19 15:15 Impression: Good alignment of the right hip replacement. ED Course/Re-evaluation: The patient presents to the ED with a slight increase in pain in her right hip following surgery and a fever. The patient denies any other infectious symptoms. The patient was initially noted to be febrile to 39.4. She defervesced with Tylenol. Blood cultures were obtained. The patient has no evidence of sepsis or serious criteria. Chest x-ray demonstrates no evidence of a pneumonia. Urinalysis demonstrates no evidence of an obvious infection. The patient had an IV established. She received a L of normal saline. Pelvic x-ray demonstrates no evidence of hardware failure. I consulted with the patient's primary surgeon Dr. Watson who evaluated the patient in the emergency department. At this point time he is comfortable the patient going home with close follow- up in the office over the next 1-2 days. The patient will return to the emergency department for any worsening symptoms of a infection including increasing pain, discharge or progressive erythema. Differential Diagnosis: Differential diagnosis considered includes atelectasis, pneumonia, urinary tract infection, postoperative infection - Data Points Laboratory Results: Laboratory Results 03/20/19 12:07 03/20/19 12:07 03/20/19 03/20/19 03/20/19 13:50 12:15 12:09 WBC RBC Hgb POC Hgb 11.6 gm/dL L gm/dL (12.6-16.3) Hct POC Hct 34 % L % (38-47) MCV MCH MCHC RDW Plt Count MPV Neut % (Auto) Lymph % (Auto) [place] % (Auto) Eos % (Auto) Baso % (Auto) Nucleat RBC Rel Count Absolute Neuts (auto) Absolute Lymphs (auto) Absolute Monos (auto) Absolute Eos (auto) Absolute Basos (auto) Absolute Nucleated RBC Immature Gran % Immature Gran # RBC/WBC/PLT Morphology Platelet Estimate ESR VBG Lactic Acid POC Sodium 137 mEq/L mEq/L (135-145) Sodium POC Potassium 4.3 mEq/L mEq/L (3.3-5.0) Potassium POC Chloride 103 mEq/L mEq/L (97-110) Chloride Carbon Dioxide POC Total CO2 22 mEq/L mEq/L (22-31) Anion Gap POC BUN 20 mg/dL mg/dL (7-23) BUN Creatinine POC Creatinine 0.9 mg/dL mg/dL (0.6-1.0) Estimated GFR Glucose POC Glucose 96 mg/dL mg/dL (70-100) Calcium C-Reactive Protein 84.5 mg/L H mg/L (<10.0) Urine Color YELLOW Urine Appearance CLEAR Urine pH 5.0 (5.0-7.5) Ur Specific [place] 1.023 (1.002-1.030) Urine Protein NEGATIVE (NEGATIVE) Urine Ketones 1+ H (NEGATIVE) Urine Blood NEGATIVE (NEGATIVE) Urine Nitrate NEGATIVE (NEGATIVE) Urine Bilirubin NEGATIVE (NEGATIVE) Urine Urobilinogen NEGATIVE EU EU (0.2-1.0) Ur Leukocyte Esterase NEGATIVE (NEGATIVE) Urine Glucose NEGATIVE (NEGATIVE) 03/20/19 03/20/19 03/20/19 12:07 12:07 12:07 WBC 4.43 10^3/uL 10^3/uL (3.80-9.50) RBC 3.86 10^6/uL L 10^6/uL (4.18-5.33) Hgb 10.8 g/dL L g/dL (12.6-16.3) POC Hgb Hct 33.5 % L % 33.5 % L % (38.0-47.0) (38.0-47.0) POC Hct MCV 86.8 fL fL (81.5-99.8) MCH 28.0 pg pg (27.9-34.1) MCHC 32.2 g/dL L g/dL (32.4-36.7) RDW 15.8 % H % (11.5-15.2) Plt Count 240 10^3/uL 10^3/uL (150-400) MPV 8.8 fL fL (8.7-11.7) Neut % (Auto) 79.9 % H % (39.3-74.2) Lymph % (Auto) 9.9 % L % (15.0-45.0) [place] % (Auto) 8.1 % % (4.5-13.0) Eos % (Auto) 0.5 % L % (0.6-7.6) Baso % (Auto) 0.7 % % (0.3-1.7) Nucleat RBC Rel Count 0.0 % % (0.0-0.2) Absolute Neuts (auto) 3.54 10^3/uL 10^3/uL (1.70-6.50) Absolute Lymphs (auto) 0.44 10^3/uL L 10^3/uL (1.00-3.00) Absolute Monos (auto) 0.36 10^3/uL 10^3/uL (0.30-0.80) Absolute Eos (auto) 0.02 10^3/uL L 10^3/uL (0.03-0.40) Absolute Basos (auto) 0.03 10^3/uL 10^3/uL (0.02-0.10) Absolute Nucleated RBC 0.00 10^3/uL 10^3/uL (0-0.01) Immature Gran % 0.9 % % (0.0-1.1) Immature Gran # 0.04 10^3/uL 10^3/uL (0.00-0.10) RBC/WBC/PLT Morphology TNP Platelet Estimate TNP ESR 15 MM/HR MM/HR (0-30) VBG Lactic Acid POC Sodium Sodium 135 mEq/L mEq/L (135-145) POC Potassium Potassium 4.6 mEq/L mEq/L (3.5-5.2) POC Chloride Chloride 102 mEq/L mEq/L (97-110) Carbon Dioxide 23 mEq/l mEq/l (22-31) POC Total CO2 Anion Gap 10 mEq/L mEq/L (6-14) POC BUN BUN 22 mg/dL mg/dL (7-23) Creatinine 0.8 mg/dL mg/dL (0.6-1.0) POC Creatinine Estimated GFR > 60 Glucose 95 mg/dL mg/dL (70-100) POC Glucose Calcium 8.7 mg/dL mg/dL (8.5-10.4) C-Reactive Protein Urine Color Urine Appearance Urine pH Ur Specific [place] Urine Protein Urine Ketones Urine Blood Urine Nitrate Urine Bilirubin Urine Urobilinogen Ur Leukocyte Esterase Urine Glucose 03/20/19 12:05 WBC RBC Hgb POC Hgb Hct POC Hct MCV MCH MCHC RDW Plt Count MPV Neut % (Auto) Lymph % (Auto) [place] % (Auto) Eos % (Auto) Baso % (Auto) Nucleat RBC Rel Count Absolute Neuts (auto) Absolute Lymphs (auto) Absolute Monos (auto) Absolute Eos (auto) Absolute Basos (auto) Absolute Nucleated RBC Immature Gran % Immature Gran # RBC/WBC/PLT Morphology Platelet Estimate ESR VBG Lactic Acid 1.2 mmol/L mmol/L (0.7-2.1) POC Sodium Sodium POC Potassium Potassium POC Chloride Chloride Carbon Dioxide POC Total CO2 Anion Gap POC BUN BUN Creatinine POC Creatinine Estimated GFR Glucose POC Glucose Calcium C-Reactive Protein Urine Color Urine Appearance Urine pH Ur Specific [place] Urine Protein Urine Ketones Urine Blood Urine Nitrate Urine Bilirubin Urine Urobilinogen Ur Leukocyte Esterase Urine Glucose Medications Given: Discontinued Medications Acetaminophen (Tylenol) 1,000 mg PO EDNOW ONE Stop: 03/20/19 12:10 Last Admin: 03/20/19 12:10 Dose: 1,000 mg Sodium Chloride (Ns) 1,000 mls @ 0 mls/hr IV ONCE ONE PRN Reason: Wide Open Stop: 03/20/19 12:10 Last Admin: 03/20/19 12:10 Dose: 1,000 mls Point of Care Test Results: Chemistry 03/20/19 12:15 POC Sodium 137 mEq/L mEq/L (135-145) POC Potassium 4.3 mEq/L mEq/L (3.3-5.0) POC Chloride 103 mEq/L mEq/L (97-110) POC Total CO2 22 mEq/L mEq/L (22-31) POC BUN 20 mg/dL mg/dL (7-23) POC Creatinine 0.9 mg/dL mg/dL (0.6-1.0) POC Glucose 96 mg/dL mg/dL (70-100) ISTAT H&H 03/20/19 12:15 POC Hgb 11.6 gm/dL L gm/dL (12.6-16.3) POC Hct 34 % L % (38-47) Departure - Departure Disposition: Home, Routine, Self-Care Clinical Impression: Postoperative fever Condition: Good Instructions: Fever in Adults (ED) Additional Instructions: 1. Please return to the ED for worsening symptoms, vomiting, increasing pain, increasing redness or other concerns. 2. Please follow up with Dr. Watson as he recommended in the emergency department. Referrals: London Watson MD [Medical Doctor] - As per Instructions
[2019-03-20 18:22] VITALS: BP 145/84
--- NOTE | 2019-03-21 09:35 | ASMTCMCOM ---
CM Note CM Note Notes: Late Entry from 03/20/19: Pt presented to the ED through triage for increased pain & weakness while ambulating and a fever. Pt had a right total hip replacement on 03/16 w/Dr Watson and was d/c'd home with [facility]. This CM received a call from Flor ([phone]) w/David Padgett and discussed pt's presentation at home this morning and their concern re:pt's hypoxia and weakness. Pt's chest x-ray showed mild interstitial edema possible r/t fluid overload. Pt's pelvis x-ray was negative and pt's hip alignment and hardware looks good. Dr Watson was to assess pt in the ED yesterday evening when this CM left for the day. This info was relayed to Flor prior to leaving. Followed up today and pt was assessed by Dr Watson in the ED yesterday evening and discharged back home with her . Instructions are to followup w/Dr Watson in his office in the next 1-2 days. This CM called Flor and left a voicemail relaying this information and requested her to call CM if they need ED Report sent via [facility]. CM available for further assistance if needed. Date Signed: 03/21/2019 09:26 AM Electronically Signed By:Marla Sterling RN
--- NOTE | 2019-03-21 09:39 | ASDISCHSUM ---
Discharge Information Plan Status:Home with Home Health Medically Cleared to Leave: Discharge Date:03/20/2019 06:06 PM D/C Disposition:Home Health Service ADT D/C Disposition:Home, Routine, Self-Care Projected Discharge Date:03/20/2019 06:06 PM Transportation at D/C:Family Discharge Delay Reason: Follow-Up Date:03/20/2019 06:06 PM Discharge Slot: Final Diagnosis: Placement Information Patient Contact Information Contact Name:GEOVANNI Relationship: Address:[address] [place] [address] Work Phone: City:[place] Alternate Phone: State/Zip Code:[place] [address] Email: Financial Information Financial Class:Medicare Primary Plan Desc:MEDICARE OUTPATIENT Primary Plan Number:[id number] Secondary Plan Desc:[employer]/MDR SUPPLEMENT Secondary Plan Number:[id number] Assessment Information [facility] CM Progress Note CM Note CM Note Notes: Late Entry from 03/20/19: Pt presented to the ED through triage for increased pain & weakness while ambulating and a fever. Pt had a right total hip replacement on 03/16 w/Dr Watson and was d/c'd home with [facility]. This CM received a call from Flor ([phone]) w/David Padgett and discussed pt's presentation at home this morning and their concern re:pt's hypoxia and weakness. Pt's chest x-ray showed mild interstitial edema possible r/t fluid overload. Pt's pelvis x-ray was negative and pt's hip alignment and hardware looks good. Dr Watson was to assess pt in the ED yesterday evening when this CM left for the day. This info was relayed to Flor prior to leaving. Followed up today and pt was assessed by Dr Watson in the ED yesterday evening and discharged back home with her . Instructions are to followup w/Dr Watson in his office in the next 1-2 days. This CM called Flor and left a voicemail relaying this information and requested her to call CM if they need ED Report sent via [facility]. CM available for further assistance if needed. Date Signed: 03/21/2019 09:26 AM Electronically Signed By:Marla Sterling RN Intervention Information Intervention Type:Post Acute Communication Date of Service:03/20/2019 09:27 AM Patient Type:Emergency Room Staff Member:SHARON Sterling, Marla Hours:0.25 Discipline:Compliance Attorney Severity: Comment:
--- NOTE | 2019-03-21 14:03 | GCON ---
[f rep st] CONSULTATION ORTHOPEDIC CONSULTATION. REASON FOR CONSULTATION: Increase in hip pain, status post hip replacement, as well as potential con fusion versus sedation, low oxygen saturation, and fever. HISTORY OF PRESENT ILLNESS: A 79-year-old female who is 4 days status post right anterior approach h ip replacement. Patient was doing exceedingly well postop day 1 and 2. She was ambulating without a ssistive devices around the house, and was not taking any pain medication. On the 3rd day, she began having more weakness and pain and difficulty walking. States that her home health nurse measured he r oxygen saturation in 70s, as well as some confusion. This, coupled with increased pain on postop d ay 4, as well as a postoperative fever, which was not recorded at home, prompted her to bring her into the emergency department. Now in the emergency department, she is feeling much better. Sh clifford is not at all confused. She denies any urinary frequency or pain. Denies any drainage from the in cision. States she has been using her incentive spirometer each time she sits down at the kitchen ta [facility], but admits may not be using it enough. Also states using that she may have been doing a little bit too much too fast in terms of her ambulation. She denies current confusion, however, does admit to inconsistent memory of events of the last 24 to 36 hours. She denies chest pain or shortness of b reath. She has not yet had a bowel movement since surgery. Comprehensive 10-point review of systems is otherwise negative except for HPI. PAST MEDICAL AND SURGICAL HISTORY: As documented. PHYSICAL EXAMINATION: GENERAL APPEARANCE: She is in no acute distress. She is awake, alert, and or iented x3. She has easy, nonlabored breathing. ABDOMEN: Soft and nontender. RIGHT HIP: Incision shows mild ecchymosis but no significant surrounding erythema or signs of cellulitis. She has no zara n with log roll of the hip or axial load. She is able to flex to 90 without significant pain. Exter nal and internally rotate to 30 without pain. Abduction to 40, adduction to 20. VITAL SIGNS: Are a s follows: Initial temperature of 39.4; however, this quickly normalized to temperatures of 37, 36.9 , and 36.8 over the course of 6 hours. She does have some high blood pressure, which she has had pre operatively, ranging in the 140s to 150s over the 80s to 90s. Heart rate is stable, mostly ranging i n the 70s. Oxygen saturation is mid 90s on 0 and 2 L of oxygen. LABORATORY DATA: Reveals normal white count of 4.43, hemoglobin of 10.8. ESR is in normal limits of 15. Her CRP is elevated, as expected 4 days out from surgery, at 84.5. She has clear urine. Amalia l lactic acid. IMAGING: X-rays shows no change in alignment of her hip replacement. No signs of fracture or disloc ation. ASSESSMENT AND PLAN: A 79-year-old female with constellation of symptoms which seem to have resolved . There is a low concern for infection at this point. Chest x-ray was negative for pneumonia, and u rinalysis was negative for urinary tract infection. Patient was able to stand and ambulate in the em ergency department. We discussed the treatment options, and recommend continued observation. She wi ll be able to be discharged home, and follow up in the office this week for close monitoring and eval uation. She was instructed to follow up sooner should the pain increase or there is progressive redn ess or drainage from the incision. Patient and understand, and they agree with the treatment plan. All questions were answered. /[id number]/MODL
== END 2019-03-20 18:06 | disposition home or self-care (01) ==
DX: R50.82 Postprocedural fever (principal); R53.1 Weakness; Z96.641 Presence of right artificial hip joint
CPT/HCPCS: 82435-PO; 82565-PO; 82947-PO; 84132-PO; 84295-PO; 84520-PO; 85014-ER